=== PATIENT | male | born 1945 | race African-American/Black ===

== ENCOUNTER 2017-10-30 03:11 | Emergency (ER) | payer OTHER ==
[2017-10-30] MEDS ORDERED: METHYLPREDNISOLONE 125 MG INJ ONE (03:52)
[2017-10-30] MEDS ORDERED: ALBUTEROL 2.5 MG/3 ML NEB SOL ONE (03:52)
[2017-10-30] MEDS ORDERED: IPRATROPIUM BROM 0.5MG/2.5ML ONE (03:52)
[2017-10-30] MEDS ORDERED: NA CHLORIDE 0.9% 1,000 ML ONE (03:52)
[2017-10-30 03:55] LABS: Absolute Lymphocytes (CBC) 1.2 K/uL (0.7-4.9); Absolute Monocytes 0.9 K/uL (0.1-1.3); Absolute Neutrophil 4.9 K/uL (1.8-8.0); Basophils % 0.4 % (0-1.3); Hematocrit 40.9 % (39.6-49.0); Lymphocytes % 16.1 % (15.3-44.8); MCH 28.9 pg (27.0-35.0); MCV 89.1 fL (80-100); MPV 8.5 fL (7.6-11.3); Monocytes % 12.7 % (3.3-12.3)
[2017-10-30 03:58] LABS: Protime INR 1.04
[2017-10-30 04:34] LABS: Arterial Blood Carboxyhemoglob 0.9 % (0-1.5); Blood Gas Oxyhemoglobin 94.7 % (94-97)
[2017-10-30 04:43] LABS: Potassium 4.6 mEq/L (3.6-5.0)
[2017-10-30 04:49] LABS: Albumin 4.2 g/dL (3.2-5.5); Bilirubin Direct 0.1 mg/dL (0-0.2); Magnesium 1.9 mg/dL (1.8-2.5); Protein, Total 7.8 g/dL (6.0-8.3)
--- NOTE | 2017-10-30 05:08 | ER ---
Nurse's Notes [facility] Name: Gonzalez Stein Jr Age: 72 yrs Sex: Male : 1945 Arrival Date: 10/30/2017 Time: 03:12 Bed 7 Private MD: Diagnosis: Acute exacerbation COPD Presentation: 10/30 03:12 Presenting complaint: Patient states: SOB since yesterday. Reports hx of emphysema and aa1 has been using his inhaler but no relief. EMS reports RA O2 sat of 86% upon their arrival to residence which increased to 99% after A\T\A tx. NAD noted upon arrival. Pt reports symptoms improved. Transition of care: patient was not received from another setting of care. Onset of symptoms was October 29, 2017. Care prior to arrival: Medication(s) given: Albuterol Neb x 1, Atrovent Neb x 1, Med neb given. 03:12 Method Of Arrival: EMS: [facility] aa1 03:12 Acuity: SHASHANK 3 aa1 Historical: - Allergies: 03:19 No Known Allergies; aa1 - Home Meds: 03:17 Albuterol Inhl [Active]; Hydrochlorothiazide Oral [Active]; pravastatin oral oral aa1 [Active]; aspirin 81 mg Oral TbEC 1 tab once daily [Active]; - PMHx: 03:17 Emphysema; Hypertension; High Cholesterol; aa1 - PSHx: 03:17 None; aa1 - Immunization history:: Flu vaccine is not up to date. - Social history:: Smoking status: Patient/guardian denies using tobacco. Screenin:30 Abuse screen: Denies threats or abuse. Denies injuries from another. Nutritional aa1 screening: No deficits noted. Tuberculosis screening: No symptoms or risk factors identified. Fall Risk None identified. Assessment: 03:30 General: Appears in no apparent distress. comfortable, Behavior is calm, cooperative, aa1 appropriate for age. Pain: Denies pain. Neuro: Level of Consciousness is awake, alert, obeys commands, Oriented to person, place, time, situation, Moves all extremities. Full function Speech is normal. Cardiovascular: Heart tones S1 S2 present Rhythm is regular. Respiratory: Reports shortness of breath at rest Airway is patent Respiratory effort is even, unlabored, Respiratory pattern is regular, symmetrical, Breath sounds with wheezes bilaterally. the patient has mild shortness of breath. GI: No signs and/or symptoms were reported involving the gastrointestinal system. : No signs and/or symptoms were reported regarding the genitourinary system. EENT: No signs and/or symptoms were reported regarding the EENT system. Derm: Skin is intact, is healthy with good turgor, Skin is pink, warm \T\ dry. Musculoskeletal: Circulation, motion, and sensation intact. Capillary refill < 3 seconds. 04:28 Reassessment: Patient appears in no apparent distress at this time. Patient and/or aa1 family updated on plan of care and expected duration. Pain level reassessed. Patient is alert, oriented x 3, equal unlabored respirations, skin warm/dry/pink. Awaiting lab results. 04:45 Reassessment: Patient and/or family updated on plan of care and expected duration. Pain ea level reassessed. Patient is alert, oriented x 3, equal unlabored respirations, skin warm/dry/pink. 05:20 Reassessment: Patient appears in no apparent distress at this time. Patient is alert, aa1 oriented x 3, equal unlabored respirations, skin warm/dry/pink. Discussed d/c \T\ f/u instructions with pt; denies questions or concerns at this time Patient denies pain at this time. Patient states symptoms have improved. Vital Signs: 03:17 BP 139 / 88; Pulse 108; Resp 24; Temp 98.0; Pulse Ox 92% on R/A; Weight 66.68 kg (R); aa1 Height 5 ft. 8 in. (172.72 cm); Pain 0/10; 04:28 BP 134 / 78; Pulse 106; Resp 22; Pulse Ox 98% on 2 lpm NC; Pain 0/10; aa1 05:11 BP 128 / 80; Pulse 114; Resp 22; Pulse Ox 96% on R/A; Pain 0/10; aa1 03:17 Body Mass Index 22.35 (66.68 kg, 172.72 cm) aa1 ED Course: 03:12 Patient arrived in ED. aa1 03:12 Lex Echevarria MD is Attending Physician. pkl 03:14 Triage completed. aa1 03:17 Arm band placed on right wrist. Patient placed in an exam room, on a stretcher. aa1 03:19 EKG done, by sleep lab technician. reviewed by Lex Echevarria MD. oe 03:23 Malissa Kemp, RN is Primary Nurse. ea 03:30 Patient has correct armband on for positive identification. Placed in gown. Bed in low aa1 position. Call light in reach. monitoring specialist on. Pulse ox on. NIBP on. Warm blanket given. 03:31 X-ray completed. Portable x-ray completed in exam room. Patient tolerated procedure la2 well. 03:32 XRAY Chest (1 view) In Process Unspecified. EDMS 03:44 Inserted saline lock: 20 gauge in right antecubital area, using aseptic technique. oe Blood collected. 05:16 IV discontinued, intact, bleeding controlled, No redness/swelling at site. Pressure ea dressing applied. 05:16 No provider procedures requiring assistance completed. ea Administered Medications: 03:41 Drug: NS 0.9% 1000 ml Route: IV; Rate: 100 ml/hr; Site: right antecubital; aa1 05:25 Follow up: Urine output 250 ml; Response: No adverse reaction; IV Status: Completed ea infusion 03:41 Drug: Albuterol - atroVENT (3:1) (2.5 mg - 0.5 mg) 3 ml Route: Nebulizer; aa1 04:30 Follow up: Response: No adverse reaction ea 03:41 Drug: SOLU-Medrol 125 mg Route: IVP; Site: right antecubital; aa1 05:01 Follow up: Response: No adverse reaction; Marked relief of symptoms aa1 05:01 Drug: Xopenex 1.25 mg Route: Inhalation; aa1 05:19 Follow up: Response: No adverse reaction; Marked relief of symptoms aa1 Output: 05:25 Urine: 250ml; Total: 250ml. ea Outcome: 05:08 Discharge ordered by . ester 05:20 Discharged to home ambulatory, with family. aa1 05:20 Condition: good 05:20 Discharge instructions given to patient, Instructed on discharge instructions, follow up and referral plans. medication usage, Demonstrated understanding of instructions, follow-up care, medications, Prescriptions given X 3. 05:26 Patient left the ED. ea Signatures: Dispatcher [employer] EDMS Radha Jewell RN RN aa1 Lex Echevarria MD MD pkl Espinosa, [place] oe Malissa Kemp, RN RN Ebony Alvarez
--- NOTE | 2017-10-30 05:08 | EDPHYS ---
Physician Documentation [facility] Name: Gonzalez Stein Jr Age: 72 yrs Sex: Male : 1945 Arrival Date: 10/30/2017 Time: 03:12 Bed 7 Private MD: ED Physician Lex Echevarria HPI: 10/30 03:21 This 72 yrs old Black Male presents to ER via EMS with complaints of Shortness Of pkl Breath. 03:21 The patient has shortness of breath at rest. Onset: The symptoms/episode began/occurred pkl today. Associated signs and symptoms: Pertinent positives: non-productive cough. The patient has experienced similar episodes in the past, a few times. Historical: - Allergies: 03:19 No Known Allergies; aa1 - Home Meds: 03:17 Albuterol Inhl [Active]; Hydrochlorothiazide Oral [Active]; pravastatin oral oral aa1 [Active]; aspirin 81 mg Oral TbEC 1 tab once daily [Active]; - PMHx: 03:17 Emphysema; Hypertension; High Cholesterol; aa1 - PSHx: 03:17 None; aa1 - Immunization history:: Flu vaccine is not up to date. - Social history:: Smoking status: Patient/guardian denies using tobacco. ROS: 03:21 Eyes: Negative for injury, pain, redness, and discharge, ENT: Negative for injury, pkl pain, and discharge, Neck: Negative for injury, pain, and swelling, Cardiovascular: Negative for chest pain, palpitations, and edema. 03:21 Respiratory: Positive for cough, shortness of breath, wheezing. 03:21 Abdomen/GI: Negative for abdominal pain, nausea, vomiting, and diarrhea. 03:21 Back: Negative for acute changes. 03:21 : Negative for urinary symptoms. 03:21 MS/extremity: Negative for acute changes. 03:21 Skin: Negative for rash. 03:21 Neuro: Negative for altered mental status. Exam: 03:21 Head/Face: Normocephalic, atraumatic. Eyes: Pupils equal round and reactive to light, pkl extra-ocular motions intact. Lids and lashes normal. Conjunctiva and sclera are non-icteric and not injected. Cornea within normal limits. Periorbital areas with no swelling, redness, or edema. ENT: Nares patent. No nasal discharge, no septal abnormalities noted. Tympanic membranes are normal and external auditory canals are clear. Oropharynx with no redness, swelling, or masses, exudates, or evidence of obstruction, uvula midline. Mucous membranes moist. Neck: Trachea midline, no thyromegaly or masses palpated, and no cervical lymphadenopathy. Supple, full range of motion without nuchal rigidity, or vertebral point tenderness. No Meningismus. Chest/axilla: Normal chest wall appearance and motion. Nontender with no deformity. No lesions are appreciated. Cardiovascular: Regular rate and rhythm with a normal S1 and S2. No gallops, murmurs, or rubs. Normal PMI, no JVD. No pulse deficits. 03:21 Respiratory: mild respiratory distress is noted, Respirations: labored breathing, that is mild, Breath sounds: bronchial sounds, that are mild, are scattered, rhonchi, that are mild, are scattered. 03:21 Abdomen/GI: Bowel sounds: normal, Palpation: abdomen is soft and non-tender, in all quadrants. 03:21 Back: Exam negative for acute changes. 03:21 : Exam negative for acute changes. 03:21 Musculoskeletal/extremity: Exam is negative for acute changes. 03:21 Skin: Exam negative for rash. 03:21 Neuro: Orientation: is normal, Mentation: is normal, Cranial nerves: grossly normal, Motor: is normal. Vital Signs: 03:17 BP 139 / 88; Pulse 108; Resp 24; Temp 98.0; Pulse Ox 92% on R/A; Weight 66.68 kg (R); aa1 Height 5 ft. 8 in. (172.72 cm); Pain 0/10; 04:28 BP 134 / 78; Pulse 106; Resp 22; Pulse Ox 98% on 2 lpm NC; Pain 0/10; aa1 05:11 BP 128 / 80; Pulse 114; Resp 22; Pulse Ox 96% on R/A; Pain 0/10; aa1 03:17 Body Mass Index 22.35 (66.68 kg, 172.72 cm) aa1 MDM: 03:12 Patient medically screened. pkl 05:07 Data reviewed: vital signs, nurses notes, lab test result(s), EKG, radiologic studies, pkl plain films. 10/30 03:20 Order name: Basic Metabolic Panel; Complete Time: 04:50 pkl 10/30 03:20 Order name: BNP; Complete Time: 04:50 pkl 10/30 03:20 Order name: CBC with Diff; Complete Time: 04:48 pkl 10/30 03:20 Order name: Ckmb; Complete Time: 04:50 pkl 10/30 03:20 Order name: CPK; Complete Time: 04:50 pkl 10/30 03:20 Order name: LFT's; Complete Time: 04:50 pkl 10/30 03:20 Order name: Magnesium; Complete Time: 04:50 pkl 10/30 03:20 Order name: PT-INR; Complete Time: 04:48 pkl 10/30 03:20 Order name: Ptt, Activated; Complete Time: 04:48 pkl 10/30 03:20 Order name: Troponin (emerg Dept Use Only); Complete Time: 04:48 pkl 10/30 03:20 Order name: XRAY Chest (1 view) pkl 10/30 03:20 Order name: ABG; Complete Time: 04:48 pkl 10/30 03:20 Order name: EKG; Complete Time: 03:21 pkl 10/30 03:20 Order name: Cardiac monitoring; Complete Time: 03:25 pkl 10/30 03:20 Order name: EKG - Nurse/Tech; Complete Time: 03:25 pkl 10/30 03:20 Order name: IV Saline Lock; Complete Time: 03:42 pkl 10/30 03:20 Order name: Labs collected and sent; Complete Time: 03:42 pkl 10/30 03:20 Order name: O2 Per Protocol; Complete Time: 03:25 pkl 10/30 03:20 Order name: O2 Sat Monitoring; Complete Time: 03:25 pkl Administered Medications: 03:41 Drug: NS 0.9% 1000 ml Route: IV; Rate: 100 ml/hr; Site: right antecubital; aa1 05:25 Follow up: Urine output 250 ml; Response: No adverse reaction; IV Status: Completed ea infusion 03:41 Drug: Albuterol - atroVENT (3:1) (2.5 mg - 0.5 mg) 3 ml Route: Nebulizer; aa1 04:30 Follow up: Response: No adverse reaction ea 03:41 Drug: SOLU-Medrol 125 mg Route: IVP; Site: right antecubital; aa1 05:01 Follow up: Response: No adverse reaction; Marked relief of symptoms aa1 05:01 Drug: Xopenex 1.25 mg Route: Inhalation; aa1 05:19 Follow up: Response: No adverse reaction; Marked relief of symptoms aa1 Disposition: 10/30/17 05:08 Discharged to Home. Impression: Acute exacerbation COPD. - Condition is Stable. - Prescriptions for Zithromax Z- Ilia 250 mg Oral Tablet - take 1 tablet by ORAL route as directed for 5 days Day 1 - take two (2) tablets one time. Day 2, 3, 4 , 5 take one (1) tablet once daily.; 6 tablet. Guaifenesin AC 10- 100 mg/5 mL Oral Liquid - take 5 milliliter by ORAL route every 8 hours As needed; 100 milliliter. - Medication Reconciliation Form, Thank You Letter, Antibiotic Education, Prescription Opioid Use form. - Follow up: Private Physician; When: 2 - 3 days; Reason: Re-evaluation by your physician. - Problem is new. - Symptoms have improved. Signatures: Dispatcher [employer] Radha Hudson, RN RN aa1 Lex Echevarria MD MD pkMalissa Guerin RN RN ea
[2017-10-30] MEDS ORDERED: LEVALBUTEROL 1.25 MG/3 ML NEB ONE (05:18)
--- NOTE | 2017-10-30 09:32 | RAD REPORT ---
EXAM DESCRIPTION: Luis Felipe Single View10/30/2017 3:33 am CLINICAL HISTORY: Shortness of breath COMPARISON: July 2017 FINDINGS: The lungs are hyperaerated. The lungs appear clear of acute infiltrate. The heart is normal size IMPRESSION: No acute abnormalities displayed
--- NOTE | 2017-10-31 07:10 | EKG ---
Test Date: 2017-10-30 Test Time: 03:07:59 Drama Professor: CHAI MEASUREMENT RESULTS: Intervals: Rate: 103 OR: 178 QRSD: 68 QT: 324 QTc: 424 [place]: P: 71 OR: 178 QRS: 65 T: 57 INTERPRETIVE STATEMENTS: Sinus tachycardia Otherwise normal ECG Compared to ECG 05/14/2015 05:09:05 No significant changes Electronically Signed On 10-31-17 07:09:53 CDT by Rene Little
== END 2017-10-30 05:26 | disposition home or self-care (01) ==
LOC: ER 03:11
DX: J44.1 Chronic obstructive pulmonary disease with (acute) exacerbation (principal); I10 Essential (primary) hypertension; E78.00 Pure hypercholesterolemia, unspecified; Z79.82 Long term (current) use of aspirin
CPT/HCPCS: 36415; 71045; 80048; 80076; 82550; 82553; 82805; 83735; 83880; 84484; 85025; 85610; 85730; 93005; 94640; 96361; 96374; 99285; J2930; J7030

== ENCOUNTER 2020-10-25 13:54 | Emergency (ER) | payer OTHER ==
--- OUTSIDE RECORDS SUMMARY | 2020-10-25 13:57 | XMS REPORT | Continuity of Care Document ---
:1945 Author Organization [facility] t Address [address] [place] [address] Care Team Providers Name Role Phone Unavailable Unavailable Unavailable Problems Condition Condition Condition Status Onset Resolution Last Treating Co mments Source Name Details Category Date Date Treatment Clinician Date BPH with BPH with Problem [facility] - n/lower n/lower [facility] urinary urinary l tract tract Outpati symptoms symptoms ent Clinics Prostate Prostate Problem Active [facility] Allergies, Adverse Reactions, Alerts This patient has no known allergies or adverse reactions. Medications Ordered Filled Start Stop Current Ordering Indication Dosage Frequency Signature Comments Components Source Medication Medication Date Date Medication? Clinician (SIG) Name Name Albuterol Albuterol Yes Micheline [address] [facility] Sulfate Sulfate [place] needed [facility] Pravastatin Pravastatin Yes Micheline [address] [facility] Sodium Sodium Dk [facility] Lisinopril/ Lisinopril/ Yes Micheline [address] [facility] Hctz Hctz [place] once daily [facility] Procedures This patient has no known procedures. Encounters Start End Encounter Admission Attending Care Care Encounter Source Date/Time Date/Time Type Type Clinicians Facility Department ID 2019-12-25 2019-12-25 Outpatient Onelia Lamar [id number] [facility] 14:58:00 14:58:00 t Specialty/U [facility]a [facility] - Specialty rology [facility] 2019-12-17 2019-12-17 Outpatient Onelia Lamar [id number] [facility] 13:15:00 13:15:00 t Specialty/U [facility]a [facility]es - Specialty [facility]logy [facility] 2019-12-10 2019-12-10 Outpatient Onelia Lamar [id number] [facility] 12:14:00 12:14:00 t Specialty/U Gena kes - Specialty rology [facility] /Urology Clinic l Clinic Outpati ent Clinics 2019-11-27 2019-11-27 Outpatient Onelia Rousseaut [id number] [facility] 15:00:00 15:00:00 t Specialty/U Gena kes - Specialty rology [facility] /Urology Clinic l Clinic Outpati ent Clinics 2019-11-21 2019-11-21 Outpatient Onelia Rousseaut [id number] [facility] 11:32:00 11:32:00 t Specialty/U Gena kes - Specialty rology [facility] /Urology Clinic l Clinic Outpati ent Clinics 2019-11-21 2019-11-21 Outpatient Onelia Rousseaut [id number] [facility] 10:00:00 10:00:00 t Specialty/U Gena kes - Specialty rology [facility] /Urology Clinic l Clinic Outpati ent Clinics 2019-10-19 2019-10-19 Outpatient Onelia Rousseaut [id number] [facility] 10:00:00 10:00:00 t Specialty/U Gena kes - Specialty rology [facility] /Urology Clinic l Clinic Outpati ent Clinics Results This patient has no known results.
[2020-10-25 14:42] LABS: Absolute Lymphocytes (CBC) 0.9 K/uL (0.7-4.9); Basophils % 0.6 % (0-1.3); Hematocrit 33.7 % (39.6-49.0); Lymphocytes % 13.6 % (15.3-44.8); MPV 8.3 fL (7.6-11.3); RBC Red Blood Cell Count 3.87 M/uL (4.33-5.43)
--- NOTE | 2020-10-25 14:51 | RAD REPORT ---
EXAM DESCRIPTION: CT - Head Brain Wo Cont - 10/25/2020 2:36 pm CLINICAL HISTORY: Alteration of awareness/confusion COMPARISON: None TECHNIQUE: Computed axial tomography of the head was obtained. IV contrast was not requested. All CT scans are performed using dose optimization technique as appropriate and may include automated exposure control or mA/KV adjustment according to patient size. FINDINGS: An intracranial bleed is not seen . The ventricles are normal in caliber. No extra-axial fluid collection is noted. A 3.4 centimeter low-density area left parietal lobe probably secondary to an old infarction. Small l ow-density right thalamus. Low-density right caudate has the appearance of an old lacunar infarction. Small low-density left cerebellum probably old infarction Mild to moderate low-density within periventricular, deep and subcortical white matter likely ischemi c changes secondary to small vessel disease Fluid within the sinuses/ mastoids is not seen. IMPRESSION: Small low-density area within the right thalamus likely a lacunar infarction. The age is indeterminate. 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 If clinically indicated further evaluation with MRI be obtained
[2020-10-25 15:05] LABS: BUN Blood Urea Nitrogen 37 mg/dL (7-18); Bicarbonate 26 mmol/L (21-32); Glucose Level 111 mg/dL (74-106); Potassium 3.6 mmol/L (3.5-5.1); Sodium Level 144 mmol/L (136-145); Troponin (Emerg Dept Use Only) < 0.02 ng/mL (0.0-0.045)
[2020-10-25 15:10] LABS: Protime INR 1.04
--- NOTE | 2020-10-25 16:09 | ER ---
Nurse's Notes [facility] Name: Gonzalez Stein Jr Age: 75 yrs Sex: Male : 1945 Arrival Date: 10/25/2020 Time: 13:57 Bed 18 Private MD: Diagnosis: Syncope and collapse;Dehydration Presentation: 10/25 13:57 Chief complaint: EMS states: witnessed syncopal episode by family. Pt diaphoretic and bw hypotensive on scene. Initial BP of 80/60. 128 BG, 300 ml of NS bolus. Pt has newly diagnosed heart arrythmia. Sinus on the monitor. All VSS on arrival to ED. MD at bedside on patient arrival. Coronavirus screen: Client denies travel out of the [place] in the last 14 days. At this time, the client does not indicate any symptoms associated with coronavirus-19. Ebola Screen: No symptoms or risks identified at this time. Initial Sepsis Screen: Does the patient meet any 2 criteria? No. Patient's initial sepsis screen is negative. Does the patient have a suspected source of infection? No. Patient's initial sepsis screen is negative. Risk Assessment: Do you want to hurt yourself or someone else? Patient reports no desire to harm self or others. Onset of symptoms was October 25, 2020. 13:57 Method Of Arrival: EMS: [facility] 13:57 Acuity: SHASHANK 3 bw Triage Assessment: 14:10 General: Appears in no apparent distress. comfortable, Behavior is calm, cooperative, bw appropriate for age. Pain: Denies pain. EENT: No deficits noted. Neuro: No deficits noted. Level of Consciousness is awake, alert, obeys commands, Oriented to person, place, time, situation, Information Security Systems Instructor are equal bilaterally Moves all extremities. Gait is steady, Speech is normal, Facial symmetry appears normal, Pupils are PERRLA, Intact. Cardiovascular: No deficits noted. Respiratory: No deficits noted. GI: No deficits noted. : No deficits noted. Derm: No deficits noted. Musculoskeletal: No deficits noted. Historical: - Allergies: 14:10 No Known Allergies; bw - Home Meds: 14:10 Albuterol Inhl [Active]; aspirin 81 mg Oral TbEC 1 tab once daily [Active]; bw Hydrochlorothiazide Oral [Active]; pravastatin Oral [Active]; - PMHx: 14:10 Emphysema; High Cholesterol; Hypertension; COPD; TIA; bw - Immunization history:: Adult Immunizations up to date. - Social history:: Smoking status: Patient reports the use of cigarette tobacco products. - Family history:: not pertinent. - Hospitalizations: : No recent hospitalization is reported. Screenin:19 Abuse screen: Denies threats or abuse. Nutritional screening: No deficits noted. bw Tuberculosis screening: No symptoms or risk factors identified. Fall Risk None identified. Assessment: 14:19 Reassessment: See triage assessment. General: Appears in no apparent distress. bw comfortable. Pain: Denies pain. Neuro: No deficits noted. Neuro: Denies weakness blurred vision dizziness, difficulty swallowing, numbness headache photophobia. Cardiovascular: No deficits noted. Respiratory: No deficits noted. GI: No deficits noted. : No deficits noted. EENT: No deficits noted. Derm: No deficits noted. Musculoskeletal: No deficits noted. No signs and/or symptoms reported regarding the musculoskeletal system. 15:16 Reassessment: Patient appears in no apparent distress at this time. No changes from previously documented assessment. Patient and/or family updated on plan of care and expected duration. Pain level reassessed. Patient is alert, oriented x 3, equal unlabored respirations, skin warm/dry/pink. 16:34 Reassessment: Patient appears in no apparent distress at this time. Patient and/or bw family updated on plan of care and expected duration. Pain level reassessed. Patient is alert, oriented x 3, equal unlabored respirations, skin warm/dry/pink. Vital Signs: 13:57 BP 101 / 55; Pulse 65; Resp 16; Temp 98.1; Pulse Ox 100% on R/A; Weight 61.69 kg; bw Height 5 ft. 8 in. 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 bw 13:59 Isiah Meyers MD is Attending Physician. rn 14:09 Triage completed. bw 14:10 Arm band placed on right wrist. bw 14:17 Allie Harden, RN is Primary Nurse. bw 14:19 Patient has correct armband on for positive identification. Call light in reach. Side bw rails up X 1. pricer bagger on. Pulse ox on. NIBP on. Warm blanket given. 14:19 No provider procedures requiring assistance completed. Maintain EMS IV. Dressing bw intact. Good blood return noted. Site clean \T\ dry. Gauge \T\ site: 20g left hand . 14:33 Basic Metabolic Panel Sent. bw 14:33 CBC with Diff Sent. bw 14:34 Initial lab(s) drawn, by me, sent to lab. Patient maintains SpO2 saturation greater jp3 than 95% on room air. 14:36 CT Head Brain wo Cont In Process Unspecified. EDMS 15:04 EKG done, by ED staff, reviewed by Isiah Meyers MD. jp3 16:34 IV discontinued. bw Administered Medications: 14:17 Drug: NS 0.9% 500 ml Route: IV; Rate: bolus; Site: left hand; bw 15:17 Follow up: Response: No adverse reaction; IV Status: Completed infusion bw Outcome: 16:09 Discharge ordered by MD. rn 16:34 Discharged to home ambulatory. bw 16:34 Condition: stable 16:34 Discharge instructions given to patient, Instructed on discharge instructions. 16:36 Patient left the ED. NIH Stroke Scale - NIH Stroke Score Date: 10/25/2020 Time: 15:04 Total Score = 0 1a. Level of Consciousness (LOC) - 0(Alert) 1b. Level of Consciousness (LOC) (Year \T\ Age) - 0(Both) 1c. LOC Commands (Open \T\ Closes Eyes/Test Engine Operator) - 0(Both) 2. Best Gaze (Lateral Gaze Paresis) - 0(Normal) 3. Visual Field Loss - 0(No visual loss) 4. Facial Palsy - 0(Normal) 5a. Left Arm: Motor (10-second hold) - 0(No drift) 5b. Right Arm: Motor (10-second hold) - 0(No drift) 6a. Left Leg: Motor (5-second hold - always test supine) - 0(No drift) 6b. Right Leg: Motor (5-second hold - always test supine) - 0(No drift) 7. Limb Ataxia (finger/nose \T\ heel/ladd - test with eyes open) - 0(Absent) 8. Sensory Loss (pinprick arms/legs/face) - 0(Normal) 9. Best Language: Aphasia (description/naming/reading) - 0(No aphasia) 10. Dysarthria (speech clarity - read or repeat words) - 0(Normal) 11. Extinction and Inattention (visual/tactile/auditory/spatial/personal) - 0(No abnormality) Initials: rn Signatures: Dispatcher [employer] Isiah Boykin MD MD rn Pisarski, Jacob jp3 Allie Harden RN RN bw
--- NOTE | 2020-10-25 16:10 | EDPHYS ---
Physician Documentation [facility] Name: Gonzalez Stein Jr Age: 75 yrs Sex: Male : 1945 Arrival Date: 10/25/2020 Time: 13:57 Bed 18 Private MD: ED Physician Isiah Meyers HPI: 10/25 14:03 This 75 yrs old Black Male presents to ER via Unassigned with complaints of syncope. rn 14:03 The patient has experienced syncope. Onset: The symptoms/episode began/occurred just rn prior to arrival. Duration: This was a single episode. Associated injury: The patient did not suffer any apparent associated injury. Associated signs and symptoms: Pertinent negatives: abdominal pain, ataxia, chest pain, combativeness, confusion, diaphoresis, diarrhea, dizziness, headache, lightheadedness, numbness, palpitations, seizure, shortness of breath, tingling, vertigo, vomiting, weakness. Current symptoms: Currently, the patient is not experiencing any symptoms. The patient has experienced a previous episode. The patient has not recently seen a physician. Reports sitting in truck, engine off, eating ice cream, thinks passed out. Improved after friend turned engine on and turned on AC. Denies preceding symptoms, no chest pain before or after, has been eating and drinking ok, no abd pain, no vomiting/diarrhea. . Historical: - Allergies: 14:10 No Known Allergies; bw - Home Meds: 14:10 Albuterol Inhl [Active]; aspirin 81 mg Oral TbEC 1 tab once daily [Active]; bw Hydrochlorothiazide Oral [Active]; pravastatin Oral [Active]; - PMHx: 14:10 Emphysema; High Cholesterol; Hypertension; COPD; TIA; bw - Immunization history:: Adult Immunizations up to date. - Social history:: Smoking status: Patient reports the use of cigarette tobacco products. - Family history:: not pertinent. - Hospitalizations: : No recent hospitalization is reported. ROS: 14:03 Constitutional: Negative for fever, chills, and weight loss, Eyes: Negative for injury, rn pain, redness, and discharge, Neck: Negative for injury, pain, and swelling, Cardiovascular: Negative for chest pain, palpitations, and edema, Respiratory: Negative for shortness of breath, cough, wheezing, and pleuritic chest pain, Abdomen/GI: Negative for abdominal pain, nausea, vomiting, diarrhea, and constipation, Back: Negative for injury and pain, MS/Extremity: Negative for injury and deformity, Skin: Negative for injury, rash, and discoloration, Neuro: Negative for headache, weakness, numbness, tingling, and seizure. 14:03 All other systems are negative. Exam: 14:03 Constitutional: This is a well developed, well nourished patient who is awake, alert, rn and in no acute distress. Head/Face: Normocephalic, atraumatic. Eyes: Pupils equal round and reactive to light, extra-ocular motions intact. Lids and lashes normal. Conjunctiva and sclera are non-icteric and not injected. Cornea within normal limits. Periorbital areas with no swelling, redness, or edema. Cardiovascular: Regular rate and rhythm. No pulse deficits. Respiratory: No increased work of breathing, no retractions or nasal flaring. Abdomen/GI: soft, non-tender Skin: Warm, dry MS/ Extremity: Pulses equal, no cyanosis. Neuro: Awake and alert, GCS 15, oriented to person, place, time, and situation. Cranial nerves II-XII grossly intact. Motor strength 5/5 in all extremities. Sensory grossly intact. Cerebellar exam normal. Vital Signs: 13:57 BP 101 / 55; Pulse 65; Resp 16; Temp 98.1; Pulse Ox 100% on R/A; Weight 61.69 kg; bw Height 5 ft. 8 in. (172.72 cm); Pain 0/10; 15:04 BP 105 / 62 RA (auto/reg); Pulse 71; Resp 16 S; Pulse Ox 100% on R/A; jp3 16:34 BP 112 / 64; Pulse 74; Resp 16; Pulse Ox 100% on R/A; bw 13:57 Body Mass Index 20.68 (61.69 kg, 172.72 cm) bw NIH Stroke Scale Scores: 15:04 NIHSS Score: 0 rn MDM: 13:59 Patient medically screened. 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 . 16:06 Differential Diagnosis: cardiac arrhythmia, idiopathic syncope, transient ischemic rn attack, vasovagal episode. Differential Diagnosis: dehydration, heat exhaustion. Data reviewed: vital signs, nurses notes. Counseling: I had a detailed discussion with the patient and/or guardian regarding: the historical points, exam findings, and any diagnostic results supporting the discharge/admit diagnosis, lab results, radiology results, the need for further work-up and treatment in the hospital. Response to treatment: the patient's symptoms have resolved after treatment, the patient's condition has returned to base line, the patient is now symptom free, patient is well hydrated. and as a result, I will discharge patient. Special discussion: I discussed with the patient/guardian in detail that at this point there is no indication for admission to the hospital. It is understood, however, that if the symptoms persist or worsen the patient needs to return immediately for re-evaluation. ED course: NO acute findings in blood or urine. Repeat neuro exam normal. I do not believe the thalamus finding is acute, is age indeterminate, patient wants to go home, has cardiology f/u in 3 days, will dc home, spoke with son and went over all results. Return precautions given and understood. . 16:09 ED course: NO malignant Arrythmias here on monitor or ECG. . rn 10/25 13:59 Order name: Basic Metabolic Panel 10/25 13:59 Order name: CBC with Diff rn 10/25 13:59 Order name: Magnesium; Complete Time: 15:12 10/25 13:59 Order name: Protime (+inr); Complete Time: 15:39 10/25 13:59 Order name: Ptt, Activated; Complete Time: 15:39 10/25 13:59 Order name: Troponin (emerg Dept Use Only); Complete Time: 15:12 rn 10/25 13:59 Order name: CT Head Brain wo Cont; Complete Time: 15:03 10/25 13:59 Order name: EKG; Complete Time: 14:08 rn 10/25 13:59 Order name: Cardiac monitoring; Complete Time: 14:18 rn 10/25 14:07 Order name: Basic Metabolic Panel; Complete Time: 15:12 EDNY 10/25 14:07 Order name: CBC with Automated Diff; Complete Time: 15:39 EDNY 10/25 16:04 Order name: Urine Dipstick--Ancillary (enter results) 10/25 13:59 Order name: IV Saline Lock; Complete Time: 14:18 rn 10/25 13:59 Order name: Labs collected and sent; Complete Time: 14:18 rn 10/25 13:59 Order name: O2 Per Protocol; Complete Time: 14:18 rn 10/25 13:59 Order name: O2 Sat Monitoring; Complete Time: 14:18 rn Administered Medications: 14:17 Drug: NS 0.9% 500 ml Route: IV; Rate: bolus; Site: left hand; bw 15:17 Follow up: Response: No adverse reaction; IV Status: Completed infusion bw Disposition: 10/25/20 16:09 Discharged to Home. Impression: Syncope and collapse, Dehydration. - Condition is Stable. - Discharge Instructions: Dehydration, Adult, Syncope. - Medication Reconciliation Form, Thank You Letter, Antibiotic Education, Prescription Opioid Use form. - Follow up: Private Physician; When: As needed; Reason: Recheck today's complaints, Re-evaluation by your physician. - Problem is new. - Symptoms have improved. NIH Stroke Scale - NIH Stroke Score Date: 10/25/2020 Time: 15:04 Total Score = 0 1a. Level of Consciousness (LOC) - 0(Alert) 1b. Level of Consciousness (LOC) (Year \T\ Age) - 0(Both) 1c. LOC Commands (Open \T\ Closes Eyes/Railroad Car Painter) - 0(Both) 2. Best Gaze (Lateral Gaze Paresis) - 0(Normal) 3. Visual Field Loss - 0(No visual loss) 4. Facial Palsy - 0(Normal) 5a. Left Arm: Motor (10-second hold) - 0(No drift) 5b. Right Arm: Motor (10-second hold) - 0(No drift) 6a. Left Leg: Motor (5-second hold - always test supine) - 0(No drift) 6b. Right Leg: Motor (5-second hold - always test supine) - 0(No drift) 7. Limb Ataxia (finger/nose \T\ heel/ladd - test with eyes open) - 0(Absent) 8. Sensory Loss (pinprick arms/legs/face) - 0(Normal) 9. Best Language: Aphasia (description/naming/reading) - 0(No aphasia) 10. Dysarthria (speech clarity - read or repeat words) - 0(Normal) 11. Extinction and Inattention (visual/tactile/auditory/spatial/personal) - 0(No abnormality) Initials: rn Signatures: Dispatcher [employer] EDIisah Weeks MD MD rn Webb, MUNIR Kelley RN bw Corrections: (The following items were deleted from the chart) 16:36 16:09 10/25/2020 16:09 Discharged to Home. Impression: Syncope and collapse; bw Dehydration. Condition is Stable. Forms are Medication Reconciliation Form, Thank You Letter, Antibiotic Education, Prescription Opioid Use. Follow up: Private Physician; When: As needed; Reason: Recheck today's complaints, Re-evaluation by your physician. Problem is new. Symptoms have improved. rn
[2020-10-25 18:15] LABS: Urine Blood NEGATIVE (Negative); Urine Glucose NEGATIVE (Negative); Urine Protein NEGATIVE (NEG)
[2020-10-26 01:11] VITALS: TEMP 98.1; O2SAT 100
[2020-10-26 01:14] VITALS: BP 112/64
--- NOTE | 2020-10-26 09:50 | EKG ---
Test Date: 2020-10-25 Test Time: 14:57:44 Gamma Operator: CELIA MEASUREMENT RESULTS: Intervals: Rate: 80 IA: 204 QRSD: 72 QT: 382 QTc: 440 [place]: P: 79 IA: 204 QRS: 81 T: 54 INTERPRETIVE STATEMENTS: Sinus rhythm with marked sinus arrhythmia Nonspecific T wave abnormality Abnormal ECG Compared to ECG 10/30/2017 03:07:59 T-wave abnormality now present Sinus tachycardia no longer present Electronically Signed On 10-26-20 09:47:50 CDT by Damon Yi
== END 2020-10-25 16:36 | disposition home or self-care (01) ==
LOC: ER 13:54
DX: E86.0 Dehydration (principal); I10 Essential (primary) hypertension; E78.00 Pure hypercholesterolemia, unspecified; J44.9 Chronic obstructive pulmonary disease, unspecified; F17.210 Nicotine dependence, cigarettes, uncomplicated; Z79.82 Long term (current) use of aspirin
CPT/HCPCS: 36415; 70450; 80048; 81003; 83735; 84484; 85025; 85610; 85730; 93005; 96360; 99285

== ENCOUNTER 2021-09-05 19:36 | Emergency (ER) | payer OTHER ==
--- OUTSIDE RECORDS SUMMARY | 2021-09-05 19:38 | XMS REPORT | Continuity of Care Document ---
:1945 Author Organization [facility] t Address [address] [place] [address] Care Team Providers Name Role Phone Aaliyah Estevez Attending Clinician Unavailable Problems Condition Condition Condition Status Onset Resolution Last Treating Co mments Source Name Details Category Date Date Treatment Clinician Date BPH with BPH with Problem [facility] - n/lower n/lower [facility] urinary urinary l tract tract Outpat[facility] symptoms symptoms ent Clinics Prostate Prostate Problem Active [facility] Allergies, Adverse Reactions, Alerts This patient has no known allergies or adverse reactions. Medications Ordered Filled Start Stop Current Ordering Indication Dosage Frequency Signature Comments Components Source Medication Medication Date Date Medication? Clinician (SIG) Name Name Albuterol Albuterol Yes Micheline [address] [facility] Sulfate Sulfate Dk needed [facility] Pravastatin Pravastatin Yes Micheline [address] [facility] Sodium Sodium [place] [facility] Lisinopril/ Lisinopril/ Yes Micheline [address] [facility] Hctz Hctz Dk once daily [facility] Procedures This patient has no known procedures. Encounters Start End Encounter Admission Attending Care Care Encounter Source Date/Time Date/Time Type Type Clinicians Facility Department ID 2021-08-26 [facility] [id number] [facility] 11:14:54 [place] [id number] [facility] 2019-12-25 2019-12-25 Outpatient Onelia Lamar [id number] [facility] 14:58:00 14:58:00 t Specialty/U [facility] - [facility] 2019-12-17 2019-12-17 Outpatient Onelia Rousseaut [id number] [facility] 13:15:00 13:15:00 t Specialty/U [facility]a [facility] - Specialty [facility] /Urology Clinic l Clinic Outpati ent Clinics 2019-12-10 2019-12-10 [place] [id number] [facility] 12:14:00 12:14:00 t Specialty/U [facility]a [facility]es - Specialty [facility] /Urology Clinic l Clinic Outpati ent Clinics 2019-11-27 2019-11-27 [place] [place] [id number] [facility] 15:00:00 15:00:00 t Specialty/U [facility]a kes - Specialty [facility]y [facility]Urology Clinic l Clinic Outpati ent Clinics 2019-11-21 2019-11-21 Out[place] [place] [id number] [facility] 11:32:00 11:32:00 t Specialty/U Gena kes - Specialty [facility]y [facility] /Urology Clinic l Clinic Outpati ent Clinics 2019-11-21 2019-11-21 [place] [id number] [facility] 10:00:00 10:00:00 t Specialty/U [facility]a kes - Specialty [facility]y [facility]Urology Clinic l Clinic Outpati ent Clinics 2019-10-19 2019-10-19 [place] [facility] [id number] [facility] 10:00:00 10:00:00 t Specialty/U Gena kes - Specialty [facility]y [facility]Urology Clinic l Clinic Outpati ent Clinics Results This patient has no known results.
[2021-09-05 20:13] LABS: Urine Blood Negative (Negative); Urine Glucose Negative (Negative); Urine Protein Negative (Negative); Urine Specific Gravity 1.015 (1.005-1.030); Urine pH 5.5 (5.0-7.0)
[2021-09-05] MEDS ORDERED: ONDANSETRON 4 MG/2 ML VIAL ONE (20:30)
[2021-09-05] MEDS ORDERED: MORPHINE 2 MG/ML SYR ONE (20:30)
[2021-09-05] MEDS ORDERED: NA CHLORIDE 0.9% 500 ML ONE (20:30)
[2021-09-05 20:35] LABS: Absolute Lymphocytes (CBC) 1.4 K/uL (0.7-4.9); Hematocrit 35.5 % (39.6-49.0); Lymphocytes % 20.7 % (15.3-44.8); MPV 7.5 fL (7.6-11.3); RBC Red Blood Cell Count 4.12 M/uL (4.33-5.43)
[2021-09-05 20:49] LABS: ALT/SGPT 22 U/L (12-78); AST/SGOT 17 U/L (15-37); Albumin 3.5 g/dL (3.4-5.0); Alkaline Phosphatase 74 U/L (45-117); BUN Blood Urea Nitrogen 25 mg/dL (7-18); Bicarbonate 23 mmol/L (21-32); Bilirubin Direct < 0.1 mg/dL (0-0.2); Bilirubin Total 0.3 mg/dL (0.2-1.0); Glucose Level 82 mg/dL (74-106); Lipase 88 U/L (73-393); Potassium 3.6 mmol/L (3.5-5.1); Protein, Total 7.9 g/dL (6.4-8.2); Sodium Level 136 mmol/L (136-145)
--- NOTE | 2021-09-05 21:08 | RAD REPORT ---
EXAM DESCRIPTION: CT - Stone Protocol - 09/05/2021 8:49 pm CLINICAL HISTORY: Abdominal pain. Flank pain COMPARISON: 2019 MRI TECHNIQUE: Computed axial tomography of the abdomen pelvis was obtained without oral or IV contrast. Lack of IV and oral contrast limits evaluation of solid organs, bowel, and vessels. Coronal reformat shelby images were obtained and reviewed. All CT scans are performed using dose optimization technique as appropriate and may include automated exposure control or mA/KV adjustment according to patient size. FINDINGS: A renal calculus is not seen. An ureteral calculus is not noted. A bladder calculus is not present. No hydronephrosis. 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 Mild interstitial right middle lobe opacities presum ably chronic. The liver, spleen, pancreas and adrenals appear grossly normal. Small left renal cyst There is no evidence of diverticulitis. The appendix appears normal Moderate right and small left inguinal hernias contain fat. Post treatment changes periprostatic region. IMPRESSION: Negative for a genitourinary calculus 18 millimeter left lower lobe opacity probably atelectasis. As a mass can also have this appearance i t is recommended that the patient have a followup CT chest in 3 months for re-evaluation
--- NOTE | 2021-09-05 21:46 | EDPHYS ---
Physician Documentation [facility] Name: Gonzalez Stein Jr Age: 76 yrs Sex: Male : 1945 Arrival Date: 09/05/2021 Time: 19:42 Bed 17 Private MD: ED Physician Romeo Colunga HPI: 09/05 20:14 This 76 yrs old Black Male presents to ER via Ambulatory with complaints of Flank Pain, mh7 Low Back Pain. 20:14 The patient complains of pain in the left flank and right flank. The pain does not mh7 radiate. Onset: The symptoms/episode began/occurred 3 day(s) ago. Modifying factors: The symptoms are alleviated by remaining still, the symptoms are aggravated by movement, palpation/percussion. Associated signs and symptoms: Pertinent negatives: diarrhea, dizziness, dysuria, fever, urinary frequency, headache, hematuria, nausea, pain radiating to the lower extremities, vomiting. Severity of pain: At its worst the pain was moderate 2 day(s) ago, in the emergency department the pain has improved moderately. Historical: - Allergies: 19:50 No Known Allergies; tw5 - Home Meds: 19:50 lisinopril-hydrochlorothiazide 20-25 mg oral tab 1 tab once daily [Active]; aspirin 81 tw5 mg Oral TbEC 1 tab once daily [Active]; pravastatin 20 mg oral tab 1 tab once daily [Active]; albuterol sulfate 0.63 mg/3 mL inhalation nebu [Active]; - PMHx: 19:50 COPD; Emphysema; High Cholesterol; Hypertension; TIA; tw5 - PSHx: 19:50 hernia repair- 1964; tw5 - Immunization history:: Flu vaccine is not up to date. - Social history:: Smoking status: Patient denies any tobacco usage or history of. ROS: 20:14 Constitutional: Negative for fever, chills, and weight loss, Eyes: Negative for injury, mh7 pain, redness, and discharge, ENT: Negative for injury, pain, and discharge, Neck: Negative for injury, pain, and swelling, Cardiovascular: Negative for chest pain, palpitations, and edema, Respiratory: Negative for shortness of breath, cough, wheezing, and pleuritic chest pain, Abdomen/GI: Negative for abdominal pain, nausea, vomiting, diarrhea, and constipation, : Negative for injury, bleeding, discharge, and swelling, MS/Extremity: Negative for injury and deformity, Skin: Negative for injury, rash, and discoloration, Neuro: Negative for headache, weakness, numbness, tingling, and seizure, Psych: Negative for depression, anxiety, suicide ideation, homicidal ideation, and hallucinations, Allergy/Immunology: Negative for hives, rash, and allergies, Endocrine: Negative for neck swelling, polydipsia, polyuria, polyphagia, and marked weight changes, Hematologic/Lymphatic: Negative for swollen nodes, abnormal bleeding, and unusual bruising. Exam: 20:14 Constitutional: This is a well developed, well nourished patient who is awake, alert, mh7 and in no acute distress. Head/Face: Normocephalic, atraumatic. Eyes: Pupils equal round and reactive to light, extra-ocular motions intact. Lids and lashes normal. Conjunctiva and sclera are non-icteric and not injected. Cornea within normal limits. Periorbital areas with no swelling, redness, or edema. Neck: Trachea midline, no thyromegaly or masses palpated, and no cervical lymphadenopathy. Supple, full range of motion without nuchal rigidity, or vertebral point tenderness. No Meningismus. Chest/axilla: Normal chest wall appearance and motion. Nontender with no deformity. No lesions are appreciated. Cardiovascular: Regular rate and rhythm with a normal S1 and S2. No gallops, murmurs, or rubs. Normal PMI, no JVD. No pulse deficits. Respiratory: Lungs have equal breath sounds bilaterally, clear to auscultation and percussion. No rales, rhonchi or wheezes noted. No increased work of breathing, no retractions or nasal flaring. Abdomen/GI: Soft, non-tender, with normal bowel sounds. No distension or tympany. No guarding or rebound. No evidence of tenderness throughout. Skin: Warm, dry with normal turgor. Normal color with no rashes, no lesions, and no evidence of cellulitis. MS/ Extremity: Pulses equal, no cyanosis. Neurovascular intact. Full, normal range of motion. Neuro: Awake and alert, GCS 15, oriented to person, place, time, and situation. Cranial nerves II-XII grossly intact. Motor strength 5/5 in all extremities. Sensory grossly intact. Cerebellar exam normal. Normal gait. Psych: Awake, alert, with orientation to person, place and time. Behavior, mood, and affect are within normal limits. 20:14 Back: pain, that is mild, of the right flank, ROM is normal, normal spinal alignment mh7 noted, CVA tenderness, that is mild, is noted on the right, vertebral tenderness, is not appreciated, muscle spasm, is not present, Straight leg raises: of both lower extremities does not illicit pain. 20:14 : CVA tenderness, on the right, Bladder: is normal, Rectal exam: is refused by patient or guardian. Vital Signs: 19:47 BP 153 / 70; Pulse 78; Resp 18; Temp 98.7(O); Pulse Ox 100% on R/A; Weight 52.16 kg; tw5 Height 5 ft. 8 in. (172.72 cm); Pain 5/10; 20:08 BP 160 / 82; Pulse 72; Resp 18; Temp 98.2; Pulse Ox 100% on R/A; Pain 3/10; benedict 21:37 BP 149 / 76; Pulse 73; Resp 20; Temp 98.5; Pulse Ox 100% on R/A; Pain 0/10; benedict 19:47 Body Mass Index 17.49 (52.16 kg, 172.72 cm) tw5 MDM: 21:37 Differential diagnosis: nephrolithiasis, pyelonephritis, UTI, Nonspecific flank pain, mh7 back pain. Data reviewed: vital signs, nurses notes, old medical records, lab test result(s), amylase and lipase, CBC, electrolytes, urinalysis, radiologic studies, CT scan. Data interpreted: Pulse oximetry: on room air is 100 %. Interpretation: normal. Counseling: I had a detailed discussion with the patient and/or guardian regarding: the historical points, exam findings, and any diagnostic results supporting the discharge/admit diagnosis, the presence of at least one elevated blood pressure reading (>120/80) during this emergency department visit, lab results, radiology results, the need for outpatient follow up, to return to the emergency department if symptoms worsen or persist or if there are any questions or concerns that arise at home. 21:41 ED course: Well-appearing, no acute distress, vital signs stable, no focal neurological mh7 deficits. Patient reports no pain at this time and only has intermittently with movement. He refused offer for pain medication in the ED. Discussed all test results and findings with the patient including CT finding of 18 mm posterior left lower lobe opacity probably atelectasis. Interstitial right lower lobe opacities presumably chronic. Also discussed recommendation by radiologist of CT chest in 3 months for reevaluation. Patient declined offer further diagnostic tests or treatment today. He reports that he is ready for discharge at this time. He will follow-up with his primary doctor but instructed to return to ED if worsening of symptoms or other urgent concerns.. 21:45 Patient medically screened. [facility] 21:48 Response to treatment: the patient's symptoms have resolved after treatment, the [facility] patient's blood pressure is in an acceptable range, mental status has returned to baseline, the patient no longer shows bradycardia, the patient is not short of breath, the patient is not tachycardic, the patient's pain is gone, the patient's temperature has normalized, the patient is now symptom free, patient is well hydrated. Refusal of service: The patient/guardian displays adequate decision making capability and despite a detailed discussion of alternatives, benefits, risks, and consequences refuses: Medications. 09/05 20:13 Order name: Urine Dipstick-Ancillary; Complete Time: 20:41 [facility] 09/05 20:13 Order name: Basic Metabolic Panel; Complete Time: 20:53 [facility] 09/05 20:13 Order name: CBC with Diff; Complete Time: 20:41 [facility] 09/05 20:13 Order name: Hepatic Function; Complete Time: 20:53 [facility] 09/05 20:13 Order name: Lipase; Complete Time: 20:53 [facility] 09/05 20:13 Order name: CT Stone Protocol; Complete Time: 21:15 [facility] 09/05 20:13 Order name: IV Saline Lock; Complete Time: 20:22 [facility] 09/05 20:13 Order name: Labs collected and sent; Complete Time: 20:22 [facility] 09/05 20:13 Order name: Urine Dipstick-Ancillary (obtain specimen); Complete Time: 20:22 [facility] Administered Medications: 20:10 Drug: NS 0.9% 500 ml Route: IV; Rate: bolus; Site: right forearm; benedict 21:17 Follow up: Response: No adverse reaction; IV Status: Completed infusion benedict 20:10 Drug: Zofran (Ondansetron) 4 mg Route: IVP; Site: left wrist; benedict 21:17 Follow up: Response: No adverse reaction benedict 20:48 Not Given (Patient Refused): morphine 2 mg IVP once; RASS on ADMIN: Combtv4, Very benedict Agttd3, Agttd2, Rstlss1, AlertClm0, Drwsy-1, Lt Sdtn-2, Mod Sdtn-3, Dp Sdtn-4, UnArsble-5 22:01 Not Given (Patient Refused): Tylenol 650 mg PO once benedict Disposition Summary: 09/05/21 21:45 Discharge Ordered Location: Home [facility] Problem: new [facility] Symptoms: have improved [facility] Condition: Stable [facility] Diagnosis - Flank pain [facility] Followup: [facility] - With: Private Physician - When: 1 - 2 days - Reason: Worsening of condition, Recheck today's complaints, Continuance of care, Re-evaluation by your physician Discharge Instructions: - Discharge Summary Sheet [facility] - Flank Pain, Adult, [id number] [facility] Forms: - Medication Reconciliation Form [facility] - Thank You Letter [facility] - Antibiotic Education [facility] - Prescription Opioid Use [facility] Signatures: Dispatcher [employer] Romeo Duff MD MD [facility] Nicolette Mendes 5 Nicole Bynum RN RN benedict
--- NOTE | 2021-09-05 21:46 | ER ---
Nurse's Notes [facility] Name: Gonzalez Stein Jr Age: 76 yrs Sex: Male : 1945 Arrival Date: 09/05/2021 Time: 19:42 Bed 17 Private MD: Diagnosis: Flank pain Presentation: 09/05 19:47 Chief complaint: Patient states: "I am having pain in my sides, it started about three tw5 days ago. Like right were my ribs are on my sides.". Coronavirus screen: Vaccine status: Patient reports being unvaccinated. Ebola Screen: Patient negative for fever greater than or equal to 101.5 degrees Fahrenheit, and additional compatible Ebola Virus Disease symptoms Patient denies exposure to infectious person. Patient denies travel to an Ebola-affected area in the 21 days before illness onset. Initial Sepsis Screen: Does the patient meet any 2 criteria? No. Patient's initial sepsis screen is negative. Does the patient have a suspected source of infection? No. Patient's initial sepsis screen is negative. Risk Assessment: Do you want to hurt yourself or someone else? Patient reports no desire to harm self or others. Onset of symptoms was September 02, 2021. 19:47 Method Of Arrival: Ambulatory tw5 19:47 Acuity: SHASHANK 3 tw5 Triage Assessment: 19:50 General: Appears in no apparent distress. Behavior is calm, cooperative, appropriate tw5 for age. Pain: Pain currently is 5 out of 10 on a pain scale. Historical: - Allergies: 19:50 No Known Allergies; tw5 - Home Meds: 19:50 lisinopril-hydrochlorothiazide 20-25 mg oral tab 1 tab once daily [Active]; aspirin 81 tw5 mg Oral TbEC 1 tab once daily [Active]; pravastatin 20 mg oral tab 1 tab once daily [Active]; albuterol sulfate 0.63 mg/3 mL inhalation nebu [Active]; - PMHx: 19:50 COPD; Emphysema; High Cholesterol; Hypertension; TIA; tw5 - PSHx: 19:50 hernia repair- 1965; tw5 - Immunization history:: Flu vaccine is not up to date. - Social history:: Smoking status: Patient denies any tobacco usage or history of. Screenin:15 Abuse screen: Denies threats or abuse. Denies injuries from another. Nutritional benedict screening: No deficits noted. Tuberculosis screening: No symptoms or risk factors identified. Fall Risk None identified. Assessment: 20:10 Reassessment: Patient appears in no apparent distress at this time. No changes from benedict previously documented assessment. Pain: Complains of pain in back Pain currently is 3 out of 10 on a pain scale. Neuro: No deficits noted. Cardiovascular: No deficits noted. Respiratory: No deficits noted. GI: No deficits noted. : No deficits noted. Musculoskeletal: No deficits noted. 20:47 General: Pt taken to CT via w/c. . benedict 21:38 General: The MD came to bedside and told the pt of the unremarkable findings. The pt is benedict going to call his grandson to pick him up. . Vital Signs: 19:47 BP 153 / 70; Pulse 78; Resp 18; Temp 98.7(O); Pulse Ox 100% on R/A; Weight 52.16 kg; tw5 Height 5 ft. 8 in. (172.72 cm); Pain 5/10; 20:08 BP 160 / 82; Pulse 72; Resp 18; Temp 98.2; Pulse Ox 100% on R/A; Pain 3/10; benedict 21:37 BP 149 / 76; Pulse 73; Resp 20; Temp 98.5; Pulse Ox 100% on R/A; Pain 0/10; benedict 19:47 Body Mass Index 17.49 (52.16 kg, 172.72 cm) tw5 ED Course: 19:42 Patient arrived in ED. ja2 19:50 Triage completed. tw5 19:50 Arm band placed on right wrist. tw5 19:54 Romeo Colunga MD is Attending Physician. 7 20:02 Nicole Bynum, RN is Primary Nurse. benedict 20:22 Basic Metabolic Panel Sent. benedict 20:22 CBC with Diff Sent. benedict 20:22 Hepatic Function Sent. benedict 20:22 Lipase Sent. benedict 20:48 CT Stone Protocol In Process Unspecified. EDMS 21:15 No provider procedures requiring assistance completed. Inserted saline lock: 20 gauge benedict in right forearm, using aseptic technique. 21:16 Patient has correct armband on for positive identification. Placed in gown. Bed in low benedict position. Call light in reach. Side rails up X 1. Adult w/ patient. Lights dimmed. Warm blanket given. 21:59 intact, bleeding controlled, No redness/swelling at site. Pressure dressing applied. benedict Administered Medications: 20:10 Drug: NS 0.9% 500 ml Route: IV; Rate: bolus; Site: right forearm; benedict 21:17 Follow up: Response: No adverse reaction; IV Status: Completed infusion benedict 20:10 Drug: Zofran (Ondansetron) 4 mg Route: IVP; Site: left wrist; benedict 21:17 Follow up: Response: No adverse reaction benedict 20:48 Not Given (Patient Refused): morphine 2 mg IVP once; RASS on ADMIN: Combtv4, Very benedict Agttd3, Agttd2, Rstlss1, AlertClm0, Drwsy-1, Lt Sdtn-2, Mod Sdtn-3, Dp Sdtn-4, UnArsble-5 22:01 Not Given (Patient Refused): Tylenol 650 mg PO once benedict Outcome: 21:16 Condition: stable benedict 21:45 Discharge ordered by MD. olivares 21:58 Discharged to home ambulatory, The pt ambulated to the waiting area and is waiting on benedict his grandson to pick him up. 21:58 Discharge instructions given to patient, Instructed on discharge instructions, follow up and referral plans. a printout of the CT scan and labs was given to the pt to take to his PCP Demonstrated understanding of instructions, follow-up care. 22:00 Patient left the ED. benedict Signatures: Dispatcher [employer] Romeo Duff MD MD 7 Meaghan Rodney Tiffany 5 Nicole Bynum RN RN benedict
[2021-09-05 22:47] VITALS: O2SAT 100
[2021-09-05 22:50] VITALS: BP 149/76; TEMP 98.5
== END 2021-09-05 22:00 | disposition home or self-care (01) ==
LOC: ER 19:36
DX: R10.9 Unspecified abdominal pain (principal); I10 Essential (primary) hypertension; E78.00 Pure hypercholesterolemia, unspecified; J44.9 Chronic obstructive pulmonary disease, unspecified; Z79.82 Long term (current) use of aspirin
CPT/HCPCS: 96361; 85025; 80048; 36415; 80076; 81003; 83690; 76377; 74176; 96374; 99284; J7040; J2405; J2270

== ENCOUNTER 2022-08-17 13:18 | Inpatient (IN) | payer OTHER ==
--- OUTSIDE RECORDS SUMMARY | 2022-08-17 13:21 | XMS REPORT | Continuity of Care Document ---
:1945 Author Organization [facility] t Address [address] [place] [address] Care Team Providers Name Role Phone Silverio Estevez Attending Clinician Unavailable Problems Condition Condition Condition Status Onset Resolution Last Treating Co mments Source Name Details Category Date Date Treatment Clinician Date BPH with BPH with Problem Active Commo n obstructio obstructio Sp gustavo n/lower n/lower - [facility] Prostate Prostate Problem Active Commo n cancer cancer [facility] Allergies, Adverse Reactions, Alerts This patient has no known allergies or adverse reactions. Medications Ordered Filled Start Stop Current Ordering Indication Dosage Frequency Signature Comments Components Source Medication Medication Date Date Medication? Clinician (SIG) Name Name Albuterol Albuterol Yes Micheline 3 ml as C ommon Sulfate Sulfate Dk needed [facility] Pravastatin Pravastatin Yes Micheline 1 tablet Common Sodium Sodium [place] Lisinopril/ Lisinopril/ Yes Micheline 1 tablet Common Hctz Hctz Dk once daily [facility] Procedures This patient has no known procedures. Encounters Start End Encounter Admission Attending Care Care Encounter Source Date/Time Date/Time Type Type Clinicians Facility Department ID 2021-08-26 Outpatient Estevez, [facility] [id number] Common 11:14:54 Silverio [id number] [facility] 2019-12-25 2019-12-25 Outpatient Onelia Lamar [id number] Common 14:58:00 14:58:00 t Specialty[facility]Urology Clinic [facility] 2019-12-17 2019-12-17 Outpatient Onelia Lamar [id number] Common 13:15:00 13:15:00 t Specialty/U Sp gustavo Specialty rology - [facility] 2019-12-10 2019-12-10 Outpatient Onelia Rousseaut [id number] Common 12:14:00 12:14:00 t Specialty/U Sp gustavo Specialty rology - [facility] 2019-11-27 2019-11-27 Outpatient Onelia Rousseaut [id number] Common 15:00:00 15:00:00 t Specialty/U Sp gustavo Specialty rology - [facility] 2019-11-21 2019-11-21 Outpatient Onelia Rousseaut [id number] Common 11:32:00 11:32:00 t Specialty/U Sp gustavo Specialty rology - [facility] 2019-11-21 2019-11-21 Outpatient Onelia Rousseaut [id number] Common 10:00:00 10:00:00 t Specialty/U Sp gustavo Specialty rology - [facility] 2019-10-19 2019-10-19 [place]patient [place]elia [place] [id number] Common 10:00:00 10:00:00 t Specialty/U Sp gustavo Specialty rology - [facility] Results This patient has no known results.
[2022-08-17 13:41] LABS: Absolute Lymphocytes (CBC) 1.1 K/uL (0.7-4.9); Hematocrit 36.8 % (39.6-49.0); Lymphocytes % 13.8 % (15.3-44.8); MCV 87.2 fL (80-100); RBC Red Blood Cell Count 4.21 M/uL (4.33-5.43)
[2022-08-17 14:05] LABS: Albumin 3.8 g/dL (3.4-5.0); Bilirubin Total 0.4 mg/dL (0.2-1.0); Potassium 3.8 mmol/L (3.5-5.1); Protein, Total 7.9 g/dL (6.4-8.2); Troponin High Sensitivity 8.4 pg/mL (<58.9)
--- NOTE | 2022-08-17 14:16 | RAD REPORT ---
EXAM DESCRIPTION: RAD - Chest Single View - 08/17/2022 2:04 pm CLINICAL HISTORY: DYSPNEA COMPARISON: Chest Pa And Lat (2 Views) dated 04/28/2022; Chest Single View dated 10/30/2017; Chest Pa A nd Lat (2 Views) dated 07/05/2017; Chest Pa And Lat (2 Views) dated 04/15/2016 FINDINGS: Lines: None. Lungs: No evidence of edema or pneumonia. Pleural: No significant pleural effusions or pneumothorax. Cardiac: The heart size is within normal limits. Mediastinum: Within normal limits. Bones: No acute fractures. Other: None IMPRESSION: No acute cardiopulmonary disease.
--- NOTE | 2022-08-17 14:46 | EDPHYS ---
Physician Documentation [facility] Name: Gonzalez Stein Jr Age: 77 yrs Sex: Male : 1945 Arrival Date: 08/17/2022 Time: 13:20 Bed 20 Private MD: ED Physician Christopher Echevarria HPI: 08/17 14:47 This 77 yrs old Black Male presents to ER via EMS with complaints of abd pain, kb shortness of breath. 14:39 Patient reports he was out walking through his apartment complex when he developed kb shortness of breath and epigastric pain. Sat down on the curb to rest and symptoms resolved. Called 911 to come get checked out. Patient has no complaints at this time . 14:47 The patient presents with abdominal pain in the epigastric area. Onset: The kb symptoms/episode began/occurred just prior to arrival. The symptoms do not radiate. Associated signs and symptoms: Pertinent positives: shortness of breath. The symptoms are described as constant. Modifying factors: The symptoms are alleviated by remaining still, the symptoms are aggravated by walking. Severity of pain: At its worst the pain was moderate in the emergency department the pain is unchanged. The patient has not experienced similar symptoms in the past. The patient has not recently seen a physician. Historical: - Allergies: 13:24 No Known Allergies; bp - Home Meds: 13:24 pravastatin 20 mg Oral tab 1 tab once daily [Active]; lisinopril-hydrochlorothiazide bp 20-25 mg Oral tab 1 tab once daily [Active]; aspirin 81 mg Oral TbEC 1 tab once daily [Active]; albuterol sulfate 0.63 mg/3 mL Inhl nebu [Active]; tamsulosin 0.4 mg oral cap 1 cap once daily [Active]; - PMHx: 13:24 COPD; Emphysema; High Cholesterol; Hypertension; TIA; bp - PSHx: 13:24 hernia repair- 1964; bp - Immunization history:: Adult Immunizations up to date. - Social history:: Smoking status: Patient denies any tobacco usage or history of. ROS: 14:32 Constitutional: Negative for fever, chills, and weight loss. kb 14:32 Respiratory: Positive for dyspnea on exertion, shortness of breath. 14:32 Abdomen/GI: Positive for abdominal pain, Negative for nausea, vomiting, and diarrhea. 14:32 All other systems are negative. Exam: 13:55 Constitutional: This is a well developed, well nourished patient who is awake, alert, kb and in no acute distress. Head/Face: Normocephalic, atraumatic. ENT: Moist Mucous membranes Neck: Trachea midline, no thyromegaly or masses palpated, and no cervical lymphadenopathy. Supple, full range of motion without nuchal rigidity, or vertebral point tenderness. No Meningismus. Chest/axilla: Normal chest wall appearance and motion. Cardiovascular: Regular rate and rhythm with a normal S1 and S2. No gallops, murmurs, or rubs. No pulse deficits. Respiratory: Respirations even and unlabored. No increased work of breathing. Talking in full sentences Abdomen/GI: Soft, non-tender. No distention Skin: Warm, dry with normal turgor. Normal color. MS/ Extremity: Pulses equal, no cyanosis. Neurovascular intact. Full, normal range of motion. Neuro: Awake and alert, GCS 15, oriented to person, place, time, and situation. Moves all extremities. Normal gait. 13:55 ECG was reviewed by the Attending Physician. Vital Signs: 13:22 BP 143 / 89; Pulse 84; Resp 16; Temp 98; Pulse Ox 99% ; Weight 52.16 kg; Height 5 ft. 8 bp in. (172.72 cm); 15:00 BP 134 / 75; Pulse 72; Resp 24; Pulse Ox 100% ; bp 16:00 BP 113 / 71; Pulse 63; Resp 23; Pulse Ox 100% ; bp 17:00 BP 102 / 69; Pulse 72; Resp 24; Pulse Ox 99% ; bp 18:00 BP 111 / 58; Pulse 88; Resp 29; Pulse Ox 99% ; bp 19:10 BP 95 / 57; Pulse 74; Resp 20; Pulse Ox 100% ; Pain 0/10; jj7 13:22 Body Mass Index 17.49 (52.16 kg, 172.72 cm) bp MDM: 13:22 Patient medically screened. kb 14:32 Differential diagnosis: coronary artery disease, myocardia ischemia or infarction, kb non-specific abd pain. Data reviewed: vital signs, nurses notes. Management of patient was discussed with the following: Hospitalist: YVONNE Quinonez wants cardiology consult prior to admission. Manager Pediatric: Dr Raslan, wants amiodarone drip started. Independent interpretation of the following test(s) in the Emergency Department EKG: See my EKG interpretation above. Historians other than the Patient: EMS: [facility]. External Records Reviewed: Inpatient record: previous EKG and creatinine reviewed . Counseling: I had a detailed discussion with the patient and/or guardian regarding: the historical points, exam findings, and any diagnostic results supporting the discharge/admit diagnosis, lab results, radiology results, the need for further work-up and treatment in the hospital. 08/17 13:23 Order name: CBC with Diff; Complete Time: 13:43 kb 08/17 13:23 Order name: CMP; Complete Time: 14:11 kb 08/17 13:23 Order name: Lipase; Complete Time: 14:11 kb 08/17 13:23 Order name: Troponin High Sensitivity; Complete Time: 14:11 kb 08/17 14:39 Order name: SARS RAPID; Complete Time: 16:24 kb 08/17 16:32 Order name: Troponin High Sensitivity EDDE 08/17 16:32 Order name: Troponin High Sensitivity; Complete Time: 18:20 EDMS 08/17 16:32 Order name: Troponin High Sensitivity EDMS 08/17 16:35 Order name: Creatine Phosphokinase; Complete Time: 17:39 EDMS 08/17 16:35 Order name: Magnesium; Complete Time: 17:39 EDMS 08/17 16:35 Order name: Phosphorus; Complete Time: 17:39 EDMS 08/17 16:35 Order name: T4 Free; Complete Time: 17:39 EDMS 08/17 16:35 Order name: Thyroid Stimulating Hormone; Complete Time: 17:39 EDMS 08/17 16:35 Order name: Urinalysis EDMS 08/17 13:23 Order name: IV Saline Lock; Complete Time: 13:36 kb 08/17 13:23 Order name: Labs collected and sent; Complete Time: 13:36 kb 08/17 13:23 Order name: EKG; Complete Time: 13:23 kb 08/17 13:23 Order name: Chest Single View XRAY; Complete Time: 14:20 kb 08/17 16:26 Order name: CONS Physician Consult EDMS 08/17 16:27 Order name: EKG Electrocardiogram EDMS 08/17 16:35 Order name: Basic Metabolic Panel EDMS 08/17 16:35 Order name: Basic Metabolic Panel EDDE 08/17 16:35 Order name: CBC with Automated Diff EDMS 08/17 16:35 Order name: CBC with Automated Diff EDDE 08/17 16:35 Order name: NT PRO-BNP EDMS 08/17 16:35 Order name: NT PRO-BNP EDDE 08/17 16:36 Order name: Heart Healthy EDDE 08/17 16:38 Order name: Echo with Doppler EDDE 08/17 13:23 Order name: EKG - Nurse/Tech; Complete Time: 13:36 kb EC:55 Rate is 73 beats/min. QRS interval is normal at 78 msec. QT interval is normal at 398 kb msec. Clinical impression: Atrial Flutter. Administered Medications: 15:00 Drug: amiodarone 150 mg Volume: 100 ml; Route: IVPB; Infused Over: 10 mins; Site: right bp forearm; 17:14 Follow up: IV Status: Completed infusion; IV Intake: 100ml bp 15:15 Drug: amiodarone 900 mg, D5W 500 ml Route: IVPB; Rate: 1 mg/min; Site: right forearm; bp Disposition Summary: 08/17/22 14:45 Hospitalization Ordered Provider: Gelacio Meyers Condition: Stable kb Problem: new kb Symptoms: are unchanged kb Bed/Room Type: Standard Hospitalization Status: Inpatient Admission(08/17/22 16:19) kb Location: Intensive Care Unit(08/17/22 16:19) kb Room Assignment: 2-(08/17/22 17:54) Diagnosis - Unspecified atrial flutter kb Forms: - Medication Reconciliation Form kb - SBAR form kb Addendum: 08/21/2022 19:10 Co-signature as Attending Physician, Christopher Echevarria MD I reviewed the patient's care r t provided by the Advanced Practice Provider and agree with the diagnosis and treatment plan. Signatures: Dispatcher [employer] [facility] Alexandria Millan FNP-C FNP-Christi Carrillo RN RN Ras Ramirez RN RN Christopher Alba MD MD rt Corrections: (The following items were deleted from the chart) 08/17 13:56 13:55 Rate is 73 beats/min. QRS interval is normal at 78 msec. QT interval is normal at kb 398 msec. kb 16:19 14:45 Observation kb kb 16:19 14:45 Telemetry/MedSurg (observation) kb kb 16:19 14:45 kb kb 17:54 16:19 kb dw
--- NOTE | 2022-08-17 14:46 | ER ---
Nurse's Notes [facility] Name: Gonzalez Stein Jr Age: 77 yrs Sex: Male : 1945 Arrival Date: 08/17/2022 Time: 13:20 Bed 20 Private MD: Diagnosis: Unspecified atrial flutter Presentation: 08/17 13:22 Chief complaint: EMS states: ABDOMINAL PAIN WHILE WALKING, NOW RESOLVED. Coronavirus bp screen: At this time, the client does not indicate any symptoms associated with coronavirus-19. Ebola Screen: No symptoms or risks identified at this time. Initial Sepsis Screen: Does the patient meet any 2 criteria? No. Patient's initial sepsis screen is negative. Does the patient have a suspected source of infection? No. Patient's initial sepsis screen is negative. Risk Assessment: Do you want to hurt yourself or someone else? Patient reports no desire to harm self or others. Onset of symptoms is unknown. 13:22 Method Of Arrival: EMS: [facility] bp 13:22 Acuity: SHASHANK 3 bp Triage Assessment: 13:24 General: Appears in no apparent distress. comfortable, Behavior is calm, cooperative, bp appropriate for age. Pain: Denies pain. EENT: No deficits noted. Neuro: No deficits noted. Cardiovascular: Rhythm is sinus rhythm. Respiratory: No deficits noted. GI: Reports upper abdominal pain, NOW RESOLVED. : No signs and/or symptoms were reported regarding the genitourinary system. Derm: No deficits noted. Musculoskeletal: No deficits noted. Historical: - Allergies: 13:24 No Known Allergies; bp - Home Meds: 13:24 pravastatin 20 mg Oral tab 1 tab once daily [Active]; lisinopril-hydrochlorothiazide bp 20-25 mg Oral tab 1 tab once daily [Active]; aspirin 81 mg Oral TbEC 1 tab once daily [Active]; albuterol sulfate 0.63 mg/3 mL Inhl nebu [Active]; tamsulosin 0.4 mg oral cap 1 cap once daily [Active]; - PMHx: 13:24 COPD; Emphysema; High Cholesterol; Hypertension; TIA; bp - PSHx: 13:24 hernia repair- 1965; bp - Immunization history:: Adult Immunizations up to date. - Social history:: Smoking status: Patient denies any tobacco usage or history of. Screenin:26 [facility] ED Fall Risk Assessment (Adult) History of falling in the last 3 months, bp including since admission No falls in past 3 months (0 pts). Abuse screen: Denies threats or abuse. Denies injuries from another. Nutritional screening: No deficits noted. Tuberculosis screening: No symptoms or risk factors identified. Assessment: 13:26 General: SEE TRIAGE NOTE. bp 15:00 Reassessment: ADMIT INITIATED. bp 17:00 Reassessment: ADMIT IN PROCESS. PT REMAINS IN AFLUTTER. bp 19:10 Reassessment: Patient is alert, oriented x 3, equal unlabored respirations, skin jj7 warm/dry/pink. ASSUMED CARE OF PT. PT SITTING IN BED. VS STABLE. NO DISTRESS OR PAIN. PT UP FOR ADMISSION. NO NEEDS AT THIS TIME. CALL DELUCA IN REACH. Vital Signs: 13:22 BP 143 / 89; Pulse 84; Resp 16; Temp 98; Pulse Ox 99% ; Weight 52.16 kg; Height 5 ft. 8 bp in. (172.72 cm); 15:00 BP 134 / 75; Pulse 72; Resp 24; Pulse Ox 100% ; bp 16:00 BP 113 / 71; Pulse 63; Resp 23; Pulse Ox 100% ; bp 17:00 BP 102 / 69; Pulse 72; Resp 24; Pulse Ox 99% ; bp 18:00 BP 111 / 58; Pulse 88; Resp 29; Pulse Ox 99% ; bp 19:10 BP 95 / 57; Pulse 74; Resp 20; Pulse Ox 100% ; Pain 0/10; jj7 13:22 Body Mass Index 17.49 (52.16 kg, 172.72 cm) bp ED Course: 13:20 Patient arrived in ED. kb 13:20 Alexandria Millan FNP-C is PHCP. kb 13:20 Christopher Echevarria MD is Attending Physician. kb 13:22 Ras Crum, MUNIR is Primary Nurse. bp 13:24 Triage completed. bp 13:24 Arm band placed on. bp 13:26 Patient has correct armband on for positive identification. Bed in low position. Call bp light in reach. Side rails up X2. 13:30 Inserted saline lock: 22 gauge in right forearm, using aseptic technique. Blood bp collected. 14:06 Chest Single View XRAY In Process Unspecified. EDMS 14:45 Gelacio Meyers MD is Hospitalizing Provider. kb 19:26 Primary Nurse role handed off by Ras Crum, RN mw2 19:34 Amanda Wright, RN is Primary Nurse. jj7 19:40 No provider procedures requiring assistance completed. Patient admitted, IV remains in [address] place[address] intact. Administered Medications: 15:00 Drug: amiodarone 150 mg Volume: 100 ml; Route: IVPB; Infused Over: 10 mins; Site: right bp forearm; 17:14 Follow up: IV Status: Completed infusion; IV Intake: 100ml bp 15:15 Drug: amiodarone 900 mg, D5W 500 ml Route: IVPB; Rate: 1 mg/min; Site: right forearm; bp Medication: 13:26 VIS not applicable for this client. bp Intake: 17:14 IV: 100ml; Total: 100ml. bp Outcome: 14:45 Decision to Hospitalize by Provider. kb 19:40 Admitted to ICU accompanied by nurse, room 2, Report called to JESSE AMARAL jj7 19:40 Condition: improved 20:00 Patient left the ED. mw2 Signatures: Dispatcher [employer] EDMS Alexandria Millan, COPY SUPERVISOR-C COPY SUPERVISOR-Ckb Ras Crum, RN RN Sera Bassett mw2 Amanda Wright, MUNIR AMARAL jj7
--- NOTE | 2022-08-17 15:02 | EKG ---
Test Date: 2022-08-17 Test Time: 13:38:31 Equipment Validation Engineer: SILVINA MEASUREMENT RESULTS: Intervals: Rate: 73 MD: QRSD: 78 QT: 362 QTc: 398 [place]: P: 81 MD: QRS: 62 T: 65 INTERPRETIVE STATEMENTS: Atrial flutter with 4:1 AV conduction Abnormal ECG Compared to ECG 10/25/2020 14:57:44 Sinus rhythm no longer present Sinus arrhythmia no longer present T-wave abnormality no longer present Electronically Signed On 08-17-22 15:02:07 CASTING INSPECTOR by Carson Bowman
[2022-08-17] MEDS ORDERED: AMIODARONE IN DEXTROSE,ISO-OSM 360 MG/200 ML BAG IV ONE (15:22)
[2022-08-17] MEDS ORDERED: AMIODARONE HCL 150 MG/3 ML INJ IV ONE (15:22)
[2022-08-17 16:23] LABS: SARS-CoV-2 Antigen Rapid Res Negative (Negative)
[2022-08-17] MEDS ORDERED: HYDROCODONE/APAP 5/325 MG TAB PO PRN (16:25)
[2022-08-17] MEDS ORDERED: ACETAMINOPHEN 325 MG TABLET PO PRN (16:25)
[2022-08-17] MEDS ORDERED: ONDANSETRON 4 MG/2 ML VIAL IV PRN (16:31)
--- NOTE | 2022-08-17 16:36 | P.HP ---
Certification for Inpatient Patient admitted to: Observation With expected LOS: <2 Midnights Patient will require the following post-hospital care: None Practitioner: I am a practitioner with admitting privileges, knowledge of patient current condition, hospital course, and medical plan of care. Services: Services provided to patient in accordance with Admission requirements found in Title 42 Section 412.3 of the Code of Federal Regulations Patient History Date of Service: 08/17/22 Reason for admission: Shortness of breath. 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 Patient reported associated signs and symptoms of fatigue, weakness and epigastric pain rated as 3/10 and described pain as tightness in quality. Patient denies any other signs and symptoms. Symptoms are aggravated or relieved by nothing. Patient decided to present to the hospital for medical evaluation. Of note, patient reported that he was told that he had arrhythmia by his PCP 5 years ago but patient has never been treated for arrhythmia. Of note, patient reports resolution of shortness of breath and abdominal pain while in the ER. Allergies No Known Allergies Allergy (Unverified 07/06/17 01:18) - Past Medical/Surgical History -: COPD -: Hypertension -: HLD -: TIA Past Surgical History: Reviewed- Non-Contributory - Family History Family History: Reviewed- Non-Contributory - Social History Smoking Status: Never smoker Alcohol use: No CD- Drugs: No Caffeine use: Yes Place of Residence: Home Review of Systems General: Weakness, Other (Fatigue) Eyes: Unremarkable ENT: Unremarkable Respiratory: Shortness of Breath Cardiovascular: Unremarkable Gastrointestinal: Abdominal Pain Genitourinary: Unremarkable Musculoskeletal: Unremarkable Integumentary: Unremarkable Neurological: Weakness Lymphatics: Unremarkable Physical Examination - Physical Exam General: Alert, In no apparent distress, Oriented x3, Cooperative HEENT: Atraumatic, PERRLA, Mucous membr. moist/pink, EOMI, Sclerae nonicteric Neck: Supple, 2+ carotid pulse no bruit, No LAD, Without JVD or thyroid abnormality Respiratory: Clear to auscultation bilaterally, Normal air movement Cardiovascular: No edema, Regular rate/rhythm, Normal S1 S2 Capillary refill: <2 Seconds Gastrointestinal: Normal bowel sounds, Soft and benign, Non-distended, No tenderness Musculoskeletal: No clubbing, No swelling, No contractures, No tenderness Integumentary: No rashes, No significant lesion, No tenderness/swelling, No erythema Neurological: Normal speech, Normal tone, Normal affect Lymphatics: No axilla or inguinal lymphadenopathy - Studies Laboratory Data (last 24 hrs) 08/17/22 13:30: Sodium 136, Potassium 3.8, BUN 41 H, Creatinine 1.73 H, Glucose 95, Total Bilirubin 0.4, AST 18, ALT 20, Alkaline Phosphatase 71, Lipase 130 08/17/22 13:30: WBC 8.10, Hgb 12.4 L, Hct 36.8 L, Plt Count 205 Assessment and Plan - Plan --Atrial flutter. Noted on EKG. Cardiology consulted. Patient placed on amiodarone drip per it security engineer recommendation. Echocardiogram pending to assess cardiac structures and function. We will trend serial troponins. Telemetry to monitor for any malignant arrhythmia. Patient placed on heparin drip. We will further recommendation per it security engineer. -- RORY. Likely secondary to volume depletion. Continue IV hydration. Will reassess renal functions in a.m. --COPD. Stable. Continue medication. --Hypertension. Poorly controlled. We will manage BP with hydralazine as needed. --HLD. Continue statin. --Epigastric pain. Patient reports a history of CAD. Patient placed on Protonix. . Patient denies abdominal pain at time of assessment. --History of TIA. Continue aspirin and statin. --DVT prophylaxis with heparin drip. Discharge Plan: Home Plan to discharge in: 48 Hours - Advance Directives Does patient have a Living Will: No Does patient have a Durable POA for Healthcare: No - Code Status/Comfort Care Code Status Assessed: Yes Physician Review: Patient Assessed, Agree with Above Assessment and Plan Critical Care: No
[2022-08-17] MEDS ORDERED: NA CHLORIDE 0.9% 1,000 ML IV SCH (17:00)
[2022-08-17] MEDS ORDERED: AMIODARONE HCL 900 MG in Dextrose 5%-Water 482 ML IV SCH (17:00)
[2022-08-17] MEDS ORDERED: HEPARIN/D5W 25,000 UNIT/500 ML BAG IV PRN (17:00)
[2022-08-17 17:39] LABS: Magnesium 1.9 mg/dL (1.6-2.4); Phosphorus 2.9 mg/dL (2.5-4.9); Thyroid Stimulating Hormone 2.08 uIU/mL (0.358-3.740)
--- NOTE | 2022-08-17 19:23 | CON ---
Date of Consultation: 08/17/2022 Reason For Consultation: Atrial flutter and shortness of breath on exertion. History Of Present Illness: This is a 77-year-old male with past medical history of dyslipidemia, hy pertension, COPD, and TIA who presented to the emergency room after he had a sudden shortness of [place] th. He was walking outside and developed sudden shortness of breath and epigastric and lower chest p ain. When he sat down and rested, symptoms resolved. He called 911 and he was brought into the [facility] room. In the EKG he is in atrial flutter, but rate is controlled and has no further symptoms. Past Medical History: As outlined above in the HPI. Medications: Refer to reconciliation sheet for detailed list. Allergies: NO KNOWN DRUG ALLERGIES. Family History: No premature coronary artery disease or cancer. Social History: He does not drink or smoke or use any drugs. Review of Systems: All systems reviewed and they were negative except for mentioned in HPI. Laboratory Data: BUN 41, creatinine is 1.73 and his troponin is 8.4. On reviewing his creatinine, i t has always been running around 1.5, which is his baseline. His hemoglobin is 12.4 and white blood cell count is 8.1. Chest x-ray showed no acute cardiopulmonary disease. Assessment/recommendation: 1.Atrial flutter, rate is controlled. Recommend amiodarone load 150 mg over 10 minutes and then 1 m g/minute for 6 hours, then 0.5 mg/minute for 16 hours and also initiate anticoagulation with Eliquis at 2.5 mg twice a day and within 24 hours if he does not convert to sinus rhythm, we will plan for TE E-guided cardioversion in. Also please obtain echocardiogram. 2.Shortness of breath on exertion, sudden. Check D-dimer. Start him on anticoagulation as outlined above and obtain an echo. Also please trend troponin as his symptoms were exertional and this could be an angina equivalent. I will be monitoring the patient with you. SR/MODL Voice ID: [id number] Report ID: [id number]
[2022-08-17] MEDS ORDERED: HYDRALAZINE HCL 20 MG/ML VIAL IV PRN (19:39)
[2022-08-17] MEDS ORDERED: SODIUM CHLORIDE 0.9% 10ML INJ IV PRN (19:45)
[2022-08-17] MEDS ORDERED: PANTOPRAZOLE 40 MG INJ IVP SCH (21:00)
[2022-08-17] MEDS ORDERED: HEPARIN 5000 UNIT/ML 1 ML VIAL SQ SCH (21:00)
[2022-08-17] MEDS: ATORVASTATIN 40 MG TAB PO SCH (21:08)
[2022-08-18 04:41] LABS: Absolute Lymphocytes (CBC) 1.2 K/uL (0.7-4.9); Hematocrit 33.2 % (39.6-49.0); MCV 86.8 fL (80-100); MPV 7.9 fL (7.6-11.3); Potassium 3.6 mmol/L (3.5-5.1); RBC Red Blood Cell Count 3.82 M/uL (4.33-5.43)
--- NOTE | 2022-08-18 06:13 | P.PN ---
Date of Service: 08/18/22 Subjective: no acute events overnight no chest pain, no SOB feels back to baseline HR: 60-70s, aflutter ROS: A complete review of systems was performed and is negative except as mentioned above Physical Exam: Gen: NAD, AOx3 HEENT: normal conjunctiva, sclera anicteric CV: irregularly irregular rhythm, no edema Pulm: non-labored respirations, clear bilaterally Abd: soft, non-tender, non-distended Neuro: normal speech, normal affect, moves all extremities vitals reviewed Problem List A flutter, new onset RORY COPD HTN HLD h/o TIA started amio drip and heparin drip on admission cardiology consulted transitioned to eliquis on 08/18, renally dosed rate controlled, but remains in aflutter transition to PO amio per cardiology recs tentative CLAUDIA cardioversion in AM if not sinus VTE: eliquis Code: full Dispo: home, ~24-48hrs
[2022-08-18] MEDS: ASPIRIN 81 MG CHEWABLE TABLET PO SCH (08:38)
[2022-08-18] MEDS: APIXABAN 2.5 MG TABLET PO SCH ×2 (08:38→20:32)
[2022-08-18] MEDS: PANTOPRAZOLE 40MG TABLET PO SCH (08:38)
[2022-08-18] MEDS ORDERED: POTASSIUM 25 MEQ EFFERV TAB PO ONE (09:00)
[2022-08-18 11:09] LABS: Urine Bacteria None Seen /HPF (<20); Urine RBC None Seen /HPF (None Seen)
[2022-08-18 11:17] LABS: Specific Gravity 1.011 (1.005-1.030); Urine Bilirubin NEGATIVE (Negative); Urine Blood Negative (Negative); Urine Clarity Clear (Clear); Urine Color Colorless (Yellow); Urine Glucose NEGATIVE (Negative); Urine Protein NEGATIVE (Negative); Urine Urobilinogen Normal (Normal)
--- NOTE | 2022-08-18 13:55 | RAD REPORT ---
EXAM DESCRIPTION: NM - Vent Perfusion VQ Scan - 08/18/2022 1:40 pm CLINICAL HISTORY: Shortness of breath COMPARISON: August 17, 2022 x-ray TECHNIQUE: 18.9 Mci [id number] was administered by inhalation. First breath, equilibrium, and washout images of the lungs obtained 7.1 millicuries Technetium-99 MAA was administered intravenously. Anterior, posterior, lateral and ob lique views of the lungs were taken. FINDINGS: Diminished radiotracer activity involves the fissures. Lungs generally demonstrate matched perfusion defects on perfusion and ventilation sequences. No mismatched segmental or lobar perfusion defects are seen. COPD is noted IMPRESSION: The patient has a relatively low probability for a pulmonary embolus
--- NOTE | 2022-08-18 19:27 | PN ---
Date of Progress Note: 08/18/2022 Subjective: Seen by bedside. Heart rate is controlled. No new complaints. Review of Systems: No chest pain, shortness of breath, orthopnea, cough. No nausea, vomiting, diarrhea. All other syst ems reviewed and they are negative. Physical Examination: Vital Signs: Temperature is 98.5, pulse 62, breathing at 17, blood pressure is 111/55, saturating 96 % on room air. General: Pleasant elderly male, in no apparent distress. Head and Neck: Pupils are equal, reactive to light. Intact eye movements. No JVD. No cervical lym phadenopathy. Neck is supple. Thyroid is not enlarged. Lungs: Clear to auscultation bilaterally. No rhonchi, wheezing, or crackles. No accessory muscle u se. Heart: Regular. No extra sounds. Abdomen: Soft, nontender. Bowel sounds positive. No organomegaly. No masses or hernia. No rigidi ty or rebound. Extremities: No clubbing, cyanosis. Intact pulses. Skin: No rash. Neuro: Alert, awake, oriented x3. No acute focal deficits appreciated. Investigations: Troponins x3 are negative. D-dimer was 2200. BUN 37, creatinine 1.53 and V/Q scan was very low probability for PE. Assessment/recommendations: 1.Atrial flutter, rate now is controlled. Continue full 24 hours load and then switch to amiodarone 200 mg by mouth twice a day. Once the drip is discontinued, continue Eliquis. If he continues to b e in atrial flutter by tomorrow morning, we will plan for a CLAUDIA-guided cardioversion. 2.Shortness of breath. This is likely due to diastolic heart failure. There is no PE on V/Q scan. Patient might require gentle diuresis down the road. 3.Dyslipidemia. Continue statin. SR/MODL Voice ID: [id number] Report ID: [id number]
[2022-08-18] MEDS: ENSURE ENLIVE 237 ML CAN PO SCH (20:31)
[2022-08-18] MEDS: AMIODARONE HCL 200 MG TAB PO SCH (20:32)
[2022-08-18] MEDS: ATORVASTATIN 40 MG TAB PO SCH (20:32)
[2022-08-18] MEDS: MELATONIN 5 MG TABLET PO PRN (21:22)
[2022-08-19] MEDS: PANTOPRAZOLE 40MG TABLET PO SCH (04:02)
[2022-08-19 06:13] LABS: Albumin 3.3 g/dL (3.4-5.0); Bilirubin Total 0.6 mg/dL (0.2-1.0); Magnesium 1.8 mg/dL (1.6-2.4); Potassium 4.1 mmol/L (3.5-5.1); Protein, Total 7.3 g/dL (6.4-8.2)
--- NOTE | 2022-08-19 07:15 | ECHO ---
HEIGHT: 5 ft 8 in WEIGHT: 130 lb 9.6 oz DATE OF STUDY: 08/18/[address]: Dhiraj Johnson 2-DIMENSIONAL: YES M.MODE: YES DOPPLER: YES COLOR FLOW: YES TDS: NO PORTABLE: YES DEFINITY: NO BUBBLE STUDY: NO DIAGNOSIS: ATRIAL FLUTTER CARDIAC HISTORY: CATHERIZATION: NO SURGERY: NO PROSTHETIC VALVE: NO PACEMAKER: NO MEASUREMENTS (cm) DIASTOLIC (NORMALS) SYSTOLIC (NORMALS) IVSd 0.7 (0.6-1.2) LA Diam 3.3 (1.9-4.0) LVEF 45-50% LVIDd 2.8 (3.5-5.7) LVIDs 1.5 (2.0-3.5) %FS 48% LVPWd 0.9 (0.6-1.2) Ao Diam 2.5 (2.0-3.7) 2 DIMENSIONAL ASSESSMENT: RIGHT ATRIUM: NORMAL LEFT ATRIUM: NORMAL RIGHT VENTRICLE: NORMAL LEFT VENTRICLE: NORMAL TRICUSPID VALVE: MILD TRICUSPID REGURGITATION MITRAL VALVE: MILD TO MODERATE MITRAL STENOSIS PULMONIC VALVE: NORMAL AORTIC VALVE: MILD AORTIC INSUFFICIENCY PERICARDIAL EFFUSION: NONE AORTIC ROOT: NORMAL LEFT VENTRICULAR WALL MOTION: MILD GLOBAL HYPOKINESIS. DOPPLER/COLOR FLOW: SEE BELOW. COMMENTS: 1. MILDLY DEPRESSED LEFT VENTRICULAR EJECTION FRACTION 45-50%. WITH MILD GLOBAL HYPOKINESIS. 2. MODERATE MITRAL STENOSIS (RHEUMATIC) AND MILD MITRAL REGURGITATION. 3. MILD TRICUSPID REGURGITATION. 4. MILD AORTIC INSUFFICIENCY. 5. 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 TECHNOLOGIST: LUNA DAVILA
[2022-08-19] MEDS: AMIODARONE HCL 200 MG TAB PO SCH ×2 (07:20→20:25)
[2022-08-19] MEDS: APIXABAN 2.5 MG TABLET PO SCH ×2 (07:20→20:25)
[2022-08-19] MEDS: ASPIRIN 81 MG CHEWABLE TABLET PO SCH (07:20)
[2022-08-19] MEDS: ENSURE ENLIVE 237 ML CAN PO SCH ×2 (07:20→21:38)
--- NOTE | 2022-08-19 17:30 | PN ---
Date of Progress Note: 08/19/2022 Subjective: Continues to be in atrial flutter. No distress. Review of Systems: No chest pain. No significant shortness of breath. No nausea, vomiting, diarrhea. All other system s reviewed and they were negative. Physical Examination: Vital Signs: Reviewed. Head and Neck: Pupils are equal, reactive to light. Intact eye movements. No JVD. No cervical lym phadenopathy. Neck is supple. Thyroid is not enlarged. Lungs: Clear to auscultation bilaterally. No rhonchi, wheezing, or crackles. No accessory muscle u se. Heart: Irregular. No extra sounds. Abdomen: Soft, nontender. Bowel sounds positive. No organomegaly. No masses or hernia. No rigidi ty or rebound. Extremities: No clubbing or cyanosis. Intact pulses. Skin: No rash. Neurologic: Alert, awake. No acute focal deficits appreciated. Investigations: BUN 28, creatinine 1.6. Troponins are negative. Assessment And Recommendations: 1.Atrial flutter/fibrillation. Loaded with amiodarone and currently is on p.o. amiodarone, continue that and Eliquis. Plan for CLAUDIA-guided cardioversion once feasible. 2.Chronic kidney disease. This is stable. 3.Dyslipidemia. Continue statin. SR/MODL Voice ID: [id number] Report ID: [id number]
[2022-08-19] MEDS: POTASS/SODIUM PHOSPHATE 1 PKT POWD.PACK PO SCH ×3 (19:21→21:39)
--- NOTE | 2022-08-19 20:12 | P.PN ---
Date of Service: 08/19/22 Subjective: no acute events overnight no chest pain, no SOB remains in aflutter, HR < 100 ROS: A complete review of systems was performed and is negative except as mentioned above Physical Exam: Gen: NAD, AOx3 HEENT: normal conjunctiva, sclera anicteric CV: irregularly irregular rhythm, no edema Pulm: non-labored respirations, clear bilaterally Abd: soft, non-tender, non-distended Neuro: normal speech, normal affect, moves all extremities vitals reviewed Problem List A flutter, new onset RORY COPD HTN HLD h/o TIA started amio drip and heparin drip on admission cardiology consulted transitioned to eliquis on 08/18, renally dosed rate controlled, but remains in aflutter transitioned to PO amio 08/18 evening per cardiology recs tentative CLAUDIA cardioversion in AM if not sinus d-dimer elevated avoiding CTA due to renal function VQ scan with low probability for PE; pt not hypoxic VTE: eliquis Code: full Dispo: home, ~24hrs
[2022-08-19] MEDS: MELATONIN 5 MG TABLET PO PRN (20:25)
[2022-08-19] MEDS: ATORVASTATIN 40 MG TAB PO SCH (20:25)
[2022-08-20 05:41] LABS: Bilirubin Total 0.4 mg/dL (0.2-1.0); Magnesium 1.8 mg/dL (1.6-2.4); Phosphorus 2.7 mg/dL (2.5-4.9); Potassium 4.2 mmol/L (3.5-5.1); Protein, Total 6.9 g/dL (6.4-8.2)
[2022-08-20 05:43] VITALS: BMI 18.2
[2022-08-20] MEDS: PANTOPRAZOLE 40MG TABLET PO SCH (05:46)
[2022-08-20] MEDS ORDERED: MIDAZOLAM HCL 2 MG/2 ML INJ ONE (07:01)
[2022-08-20] MEDS ORDERED: METOPROLOL TARTRATE 5 MG/5 ML INJ IV ONE (07:01)
[2022-08-20] MEDS ORDERED: FENTANYL CITR 100 MCG/2 ML ONE (07:01)
[2022-08-20] MEDS ORDERED: MIDAZOLAM HCL 5 ML ONE (07:01)
[2022-08-20] MEDS ORDERED: ATROPINE SULF 1 MG/10 ML SYR IV ONE (07:02)
[2022-08-20] MEDS ORDERED: HYDRALAZINE HCL 20 MG/ML VIAL ONE (07:02)
[2022-08-20] MEDS ORDERED: FLUMAZENIL 0.1 MG/ML (5 mL VIAL) IV ONE (07:02)
[2022-08-20] MEDS ORDERED: LIDOCAINE VISCOUS 2% SOLN 15 ML UDC ONE (07:15)
[2022-08-20] MEDS ORDERED: PHENOL 1.4% ORAL SPRAY 180ML ONE (07:15)
[2022-08-20] MEDS ORDERED: NA CHLORIDE 0.9% 500 ML ONE ×2 (07:37→07:41)
[2022-08-20] MEDS ORDERED: MAGNESIUM SULFATE 1 gm IVPB 1 GM/100 ML BAG IV ONE (09:00)
[2022-08-20] MEDS: ENSURE ENLIVE 237 ML CAN PO SCH ×2 (09:43→20:37)
[2022-08-20] MEDS: ASPIRIN 81 MG CHEWABLE TABLET PO SCH (09:46)
[2022-08-20] MEDS: APIXABAN 2.5 MG TABLET PO SCH (09:46)
[2022-08-20] MEDS: AMIODARONE HCL 200 MG TAB PO SCH ×2 (09:46→20:15)
--- NOTE | 2022-08-20 16:51 | P.PN ---
Date of Service: 08/20/22 Subjective: no acute events overnight no chest pain, no SOB remains in aflutter, HR 60-70s ROS: A complete review of systems was performed and is negative except as mentioned above Physical Exam: Gen: NAD, AOx3 HEENT: normal conjunctiva, sclera anicteric CV: irregularly irregular rhythm, no edema Pulm: non-labored respirations, clear bilaterally, on 1.5LNC this morning Abd: soft, non-tender, non-distended Neuro: normal speech, normal affect, moves all extremities vitals reviewed Problem List A flutter, new onset atrial thrombus RORY COPD HTN HLD h/o TIA started amio drip and heparin drip on admission cardiology consulted transitioned to eliquis on 08/18, renally dosed renall function improved, increase to 5mg BID on 08/20 evening CLAUDIA (08/20): noted thrombus in left atrium; non cardioversion performed rate controlled, but remains in aflutter transitioned to PO amio 08/18 evening per cardiology recs d-dimer elevated avoiding CTA due to renal function VQ scan with low probability for PE; pt not hypoxic VTE: eliquis Code: full Dispo: home, tomorrow pending stable off oxygen, BP control increased eliquis, monitor renal function
--- NOTE | 2022-08-20 19:39 | PN ---
Date of Progress Note: 08/20/2022 Subjective: Seen by bedside, doing well. No new complaints. Review of Systems: No chest pain, shortness of breath, orthopnea, cough, nausea, vomiting, or diarrhea. All other syste ms reviewed and they were negative. Physical Examination: Vital Signs: Reviewed. Head And Neck: Pupils are equal and reactive to light. Intact eye movements. No JVD. No cervical lymphadenopathy. Neck is supple. Thyroid is not enlarged. Lungs: Clear to auscultation bilaterally. No rhonchi, wheezing, or crackles. No accessory muscle u se. Heart: Irregular. No extra sounds. Abdomen: Soft, nontender. Bowel sounds positive. No organomegaly. No masses or hernia. No rigidi ty or rebound. Extremities: No edema, clubbing, or cyanosis. Intact pulses. Skin: No rash. Neurologic: Alert, awake. No acute focal deficits appreciated. Investigations: BUN 25, creatinine 1.43. His hemoglobin is 11.2. Assessment/recommendation: 1.Atrial fibrillation/flutter. I did a CLAUDIA on him today and he has large thrombus in his left atriu m. I recommend to increase the Eliquis to 5 mg twice a day and keep him on amiodarone and from Cardi ology standpoint, the patient can be released and we will plan to repeat his CLAUDIA in about 2 months be ing on Eliquis. 2.Dyslipidemia. Continue statin. 3.Keluz-oy-bvrtcyl kidney disease. Creatinine has improved. SR/MODL Voice ID: [id number] Report ID: [id number]
[2022-08-20] MEDS: ATORVASTATIN 40 MG TAB PO SCH (20:15)
[2022-08-20] MEDS: APIXABAN 5 MG TABLET PO SCH (20:15)
--- NOTE | 2022-08-20 22:45 | OP ---
Date of Procedure: 08/20/2022 Surgeon: PAULINE MUKHERJEE Procedure Performed: Transesophageal echocardiogram. Indication: Atrial fibrillation prior to cardioversion. Complications: None. Description Of Procedure: After risks, benefits, and alternatives were explained, the patient agreed to procedure and signed informed consent. At bedside in ICU, after proper time-out, we used lidocai ne to numb the back of his throat and then we gave 5 mg of Versed and CLAUDIA probe was inserted. CLAUDIA wa s performed without complication and there was a large thrombus in the left atrium. So CLAUDIA probe was removed and no cardioversion was done due to the presence of the thrombus in the left atrium. The p atient tolerated the procedure very well. Conclusion: Large left atrium thrombus. Recommendation: Full anticoagulation with Eliquis 5 mg twice a day. Re-evaluate with CLAUDIA in about 6 weeks. SR/MODL Voice ID: [id number] Report ID: [id number]
[2022-08-21] MEDS: PANTOPRAZOLE 40MG TABLET PO SCH (05:49)
[2022-08-21 06:05] VITALS: O2SAT 100
[2022-08-21 06:06] LABS: Magnesium 1.8 mg/dL (1.6-2.4); Phosphorus 2.6 mg/dL (2.5-4.9); Potassium 4.1 mmol/L (3.5-5.1)
[2022-08-21] MEDS: AMIODARONE HCL 200 MG TAB PO SCH (08:07)
[2022-08-21] MEDS: ASPIRIN 81 MG CHEWABLE TABLET PO SCH (08:07)
[2022-08-21] MEDS: APIXABAN 5 MG TABLET PO SCH (08:07)
[2022-08-21] MEDS: ENSURE ENLIVE 237 ML CAN PO SCH (08:08)
[2022-08-21] MEDS ORDERED: MAGNESIUM SULFATE 1 gm IVPB 1 GM/100 ML BAG IV ONE (09:00)
[2022-08-21 10:19] VITALS: BP 130/66; TEMP 96.4
--- NOTE | 2022-08-23 08:19 | TEE ---
TRANSESOPHAGEAL ECHOCARDIOGRAM REPORT CARDIOLOGY DEPARTMENT DATE OF STUDY: 08/20/2022 HEIGHT: 5'8" WEIGHT: 130 lbs DIAGNOSIS: CARDIOVERSION COUNTRY SINGER COMMENTS: CLAUDIA CARDIAC HISTORY: CATHERIZATION: SURGERY: PROSTHETIC VALVE: PACEMAKER: 2 DIMENSIONAL ASSESSMENT: RIGHT ATRIUM: NORMAL LEFT ATRIUM: ENLARGED RIGHT VENTRICLE: NORMAL LEFT VENTRICLE: NORMAL TRICUSPID VALVE: NORMAL MITRAL VALVE: NORMAL PULMONIC VALVE: NORMAL AORTIC VALVE: NORMAL PERICARDIAL EFFUSION: NONE AORTIC ROOT: NORMAL EJECTION FRACTION: 55-60 % LEFT VENTRICULAR WALL MOTION: NORMAL DOPPLER/COLOR FLOW: NORMAL COMMENTS: 1. NORMAL LEFT VENTRICULAR EJECTION FRACTION 55-60% 2. LEFT ATRIAL APPENDAGE SMOKE IS PRESENT 3. LARGE LEFT ATRIUM MASS 1.6 BY 1.3 [facility] TECHNOLOGIST: LUNA DAVILA
--- NOTE | 2022-08-30 23:26 | P.DS ---
Admission Date: 08/18/22 Discharge Date: 08/21/22 Disposition: ROUTINE DISCHARGE Discharge Condition: GOOD Reason for Admission: Shortness of breath. 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 Patient reported associated signs and symptoms of fatigue, weakness and epigastric pain rated as 3/10 and described pain as tightness in quality. Patient denies any other signs and symptoms. Symptoms are aggravated or relieved by nothing. Patient decided to present to the hospital for medical evaluation. Of note, patient reported that he was told that he had arrhythmia by his PCP 5 years ago but patient has never been treated for arrhythmia. Of note, patient reports resolution of shortness of breath and abdominal pain while in the ER. Hospital Course: Problem List A flutter, new onset atrial thrombus RORY COPD HTN HLD h/o TIA Patient presented with shortness of breath, chest discomfort, not feeling well. Found to have atrial fibrillation / flutter. D-dimer was elevated. Kidney function precluded obtaining CTA, so a VQ scan was performed and reported low probability of a pulmonary embolus. He received IV Amiodarone and anticoagulation with improvement of his heart rate. Cardiology was consulted, planned for CLAUDIA electrical cardioversion, however on CLAUDIA, noted a large thrombus in his left atrium. His eliquis was adjusted for his renal function, which improved, Cr < 1.5 and his oxygen was weaned down to room air. He was deemed stable for discharge on amiodarone 200mg twice daily and eliquis 5mg twice daily. Follow up with Cardiology in 1-2 weeks. Plan for repeat CLAUDIA in ~2 months to re-evaluate thrombus and possibility of electrical cardioversion if needed at that time. Blood pressure throughout hospitalization was low-normal. This combined with mild RORY, recommend stopping lisinopril-HCTZ for now. Monitor blood pressure at home. Further discussion with Cardiology on folllow up if/when appropriate to restart. Follow up: PCP within 1 week Cardiology in 1-2 weeks. Vital Signs/Physical Exam: Temp Pulse Resp BP Pulse Ox 96.4 F L 66 18 130/66 99 08/21/22 08:00 08/21/22 09:00 08/21/22 09:00 08/21/22 09:00 08/21/22 09:00 Physical Exam: Gen: NAD, AOx3 HEENT: normal conjunctiva, sclera anicteric CV: irregularly irregular rhythm, no edema Pulm: non-labored respirations, clear bilaterally, on room air Abd: soft, non-tender, non-distended Neuro: normal speech, normal affect, moves all extremities Laboratory Data at Discharge: WBC 6.90 K/uL (4.3-10.9) 08/18/22 01:32 Hgb 11.2 g/dL (13.6-17.9) L D 08/18/22 01:32 Hct 33.2 % (39.6-49.0) L 08/18/22 01:32 Plt Count 192 K/uL (152-406) 08/18/22 01:32 APTT 86.4 SECONDS (24.3-36.9) H 08/18/22 06:18 Sodium 137 mmol/L (136-145) 08/21/22 05:20 Potassium 4.1 mmol/L (3.5-5.1) 08/21/22 05:20 BUN 27 mg/dL (7-18) H 08/21/22 05:20 Creatinine 1.42 mg/dL (0.70-1.30) H 08/21/22 05:20 Glucose 90 mg/dL (74-106) 08/21/22 05:20 Phosphorus 2.6 mg/dL (2.5-4.9) 08/21/22 05:20 Magnesium 1.8 mg/dL (1.6-2.4) 08/21/22 05:20 Total Bilirubin 0.4 mg/dL (0.2-1.0) 08/20/22 04:51 AST 14 U/L (15-37) L 08/20/22 04:51 ALT 15 U/L (16-61) L 08/20/22 04:51 Alkaline Phosphatase 67 U/L (45-117) 08/20/22 04:51 Lipase 130 U/L (73-393) 08/17/22 13:30 Home Medications: Pravastatin Sodium 20 mg PO DAILY 08/17/22 Tamsulosin [Flomax*] 1 cap PO BEDTIME 08/17/22 Amiodarone HCl [Cordarone*] 200 mg PO BID 30 Days #60 tab 08/21/22 Apixaban [Eliquis] 5 mg PO BID 30 Days #60 tab 08/21/22 New Medications: Amiodarone HCl [Cordarone*] 200 mg PO BID 30 Days #60 tab Apixaban [Eliquis] 5 mg PO BID 30 Days #60 tab Physician Discharge Instructions: Patient presented with shortness of breath, chest discomfort, not feeling well. Found to have atrial fibrillation / flutter. D-dimer was elevated. Kidney function precluded obtaining CTA, so a VQ scan was performed and reported low probability of a pulmonary embolus. He received IV Amiodarone and anticoagulation with improvement of his heart rate. Cardiology was consulted, planned for CLAUDIA electrical cardioversion, however on CLAUDIA, noted a large thrombus in his left atrium. His eliquis was adjusted for his renal function, which improved, Cr < 1.5 and his oxygen was weaned down to room air. He was deemed stable for discharge on amiodarone 200mg twice daily and eliquis 5mg twice daily. Follow up with Cardiology in 1-2 weeks. Plan for repeat CLAUDIA in ~2 months to re-evaluate thrombus and possibility of electrical cardioversion if needed at that time. Blood pressure throughout hospitalization was low-normal. This combined with mild RORY, recommend stopping lisinopril-HCTZ for now. Monitor blood pressure at home. Further discussion with Cardiology on folllow up if/when appropriate to restart. Follow up: PCP within 1 week Cardiology in 1-2 weeks.PROBLEM: (list out Acute Problems for the Current visit) GOAL: Clear understanding of disease process INSTRUCTIONS: Follow up with cardiology in 1-2 weeks stop taking lisinopril-HCTZ monitor Blood Pressure at home Diet: AHA Activity: Ad beto DME DME: Date Ordered: Name of Company: [employer] Services Needed: None Name of Company: Date or Referral: IMMUNIZATION Influenza Vaccine Indicated: No Influenza Vaccine Given: Date Given: Pneumonia Vaccine Indicated: No Pneumonia Vaccine Given: Date Given: Diet: AHA Activity: Ad beto Followup: Joseph Nielson PA [Primary Care Provider] - Carson Bowman MD [ACTIVE - CAN ADMIT] - Time spent managing pt's care (in minutes): 45
== END 2022-08-21 09:30 | disposition home or self-care (01) | DRG 309 ==
LOC: ER 13:18 → ERHOLD 16:22 → 3RD-ICU 19:15 → OBSVTOIN 08-18 14:57
PROVIDERS: ADMIT Hospitalist; ATTEND Hospitalist
PROC: B24BZZ4 Ultrasonography of Heart with Aorta, Transesophageal (ICD-10-PCS; principal; 2022-08-20)
DX: I48.92 Unspecified atrial flutter (principal); N17.9 Acute kidney failure, unspecified; Z68.1 Body mass index [BMI] 19.9 or less, adult; E78.5 Hyperlipidemia, unspecified; J44.9 Chronic obstructive pulmonary disease, unspecified; I48.91 Unspecified atrial fibrillation; I12.9 Hypertensive chronic kidney disease with stage 1 through stage 4 chronic kidney disease, or unspecified chronic kidney disease; N18.9 Chronic kidney disease, unspecified; I51.3 Intracardiac thrombosis, not elsewhere classified; I25.10 Atherosclerotic heart disease of native coronary artery without angina pectoris; R63.6 Underweight; Z79.82 Long term (current) use of aspirin; Z79.01 Long term (current) use of anticoagulants; Z86.73 Personal history of transient ischemic attack (TIA), and cerebral infarction without residual deficits; Z79.899 Other long term (current) drug therapy; Z20.822 Contact with and (suspected) exposure to COVID-19
CPT/HCPCS: 36415; 71045; 78582; 80048; 80053; 81003; 82550; 82947; 83690; 83735; 83880; 84100; 84439; 84443; 84484; 85025; 85379; 85730; 87811; 93005; 93306; 93312; 96365; 96366; 99285; A9540; A9558; C9113; G0378; J0282; J0360; J0461; J1644; J2250; J3010; J3475; J7030; J7040; J7060

== ENCOUNTER → 2022-10-25 | Day surgery (SDC) | payer OTHER ==
[~2022-10-25] MED LIST: ATROPINE SULF 1 MG/10 ML SYR IV ONE; FLUMAZENIL 0.1 MG/ML (5 mL VIAL) IV ONE; LIDOCAINE VISCOUS 2% SOLN 15 ML UDC ONE; METOPROLOL TARTRATE 5 MG/5 ML INJ IV ONE; MIDAZOLAM HCL 0 ML ONE; MIDAZOLAM HCL 2 MG/2 ML INJ ONE
--- NOTE | 2022-10-25 12:24 | EKG ---
Test Date: 2022-10-25 Test Time: 07:45:13 Director Maternal Child: RENAN MEASUREMENT RESULTS: Intervals: Rate: 91 AK: 186 QRSD: 98 QT: 408 QTc: 501 Dorr: P: 65 AK: 186 QRS: 74 T: 42 INTERPRETIVE STATEMENTS: Normal sinus rhythm Prolonged QT Abnormal ECG Compared to ECG 08/17/2022 13:38:31 Prolonged QT interval now present Atrial flutter no longer present Electronically Signed On 10-25-22 12:23:05 CDT by Carson Bowman
== END ==
LOC: EKG 07:19
PROVIDERS: ATTEND Internal Medicine
DX: I48.0 Paroxysmal atrial fibrillation (principal); Z53.8 Procedure and treatment not carried out for other reasons; I51.3 Intracardiac thrombosis, not elsewhere classified; I10 Essential (primary) hypertension; E78.2 Mixed hyperlipidemia; R60.9 Edema, unspecified; Z79.01 Long term (current) use of anticoagulants; Z79.899 Other long term (current) drug therapy
CPT/HCPCS: 93005; J0461; J2250

== ENCOUNTER 2023-01-21 08:00 | Day surgery (SDC) | payer OTHER ==
[2023-01-21 07:38] LABS: Absolute Lymphocytes (CBC) 1.1 K/uL (0.7-4.9); Lymphocytes % 15.2 % (15.3-44.8); MCV 82.6 fL (80-100); RBC Red Blood Cell Count 3.87 M/uL (4.33-5.43)
[2023-01-21 07:41] LABS: Protime INR 1.85
[~2023-01-21 08:00] MED LIST changes: +HYDRALAZINE HCL 20 MG/ML VIAL ONE; -METOPROLOL TARTRATE 5 MG/5 ML INJ IV ONE; -MIDAZOLAM HCL 2 MG/2 ML INJ ONE; +NA CHLORIDE 0.9% 0 ML ONE; +PHENOL 1.4% ORAL SPRAY 180ML ONE
[2023-01-21 08:09] LABS: Potassium 3.8 mEq/L (3.5-5.1)
== END 2023-01-21 08:30 | disposition home or self-care (01) ==
LOC: CCL 08:00
PROVIDERS: ATTEND Internal Medicine
DX: I48.91 Unspecified atrial fibrillation (principal); Z53.8 Procedure and treatment not carried out for other reasons; I51.3 Intracardiac thrombosis, not elsewhere classified; I11.0 Hypertensive heart disease with heart failure; I50.9 Heart failure, unspecified; E78.2 Mixed hyperlipidemia; Z79.01 Long term (current) use of anticoagulants; Z79.899 Other long term (current) drug therapy
CPT/HCPCS: 36415; 80048; 85025; 85610; 85730; 93005; J0360; J0461; J2250; J7040

== ENCOUNTER → 2023-03-23 | Day surgery (SDC) | payer OTHER ==
[~2023-03-23] MED LIST changes: -HYDRALAZINE HCL 20 MG/ML VIAL ONE; -LIDOCAINE VISCOUS 2% SOLN 15 ML UDC ONE; -MIDAZOLAM HCL 0 ML ONE; +MIDAZOLAM HCL 2 MG/2 ML INJ ONE; -NA CHLORIDE 0.9% 0 ML ONE; +NA CHLORIDE 0.9% 500 ML ONE; -PHENOL 1.4% ORAL SPRAY 180ML ONE; +SIMPLE SYRUP 20 ML, LIDOCAINE 2% VISCOUS ORAL 20 ML MM ONE
--- NOTE | 2023-03-23 13:24 | TEE ---
TRANSESOPHAGEAL ECHOCARDIOGRAM REPORT CARDIOLOGY DEPARTMENT DATE OF STUDY: 03/23/2023 HEIGHT: 5'8" WEIGHT: 125 lbs DIAGNOSIS: LEFT ATRIAL MYXOMA HISTOPATH TECH COMMENTS: CLAUDIA CARDIAC HISTORY: CATHERIZATION: SURGERY: PROSTHETIC VALVE: PACEMAKER: 2 DIMENSIONAL ASSESSMENT: RIGHT ATRIUM: LEFT ATRIUM: RIGHT VENTRICLE: LEFT VENTRICLE: TRICUSPID VALVE: MITRAL VALVE: PULMONIC VALVE: AORTIC VALVE: PERICARDIAL EFFUSION: AORTIC ROOT: EJECTION FRACTION: 55-60% LEFT VENTRICULAR WALL MOTION: DOPPLER/COLOR FLOW: COMMENTS: 1. TRANSESOPHAGEAL ECHOCARDIOGRAM PROBE WAS INSERTED, NO DIFFICULTY 2. NORMAL LEFT VENTRICULAR EJECTION FRACTION 55-60% 3. MILD MITRAL REGUGITATION 4. MILD TRICUSPID REGURGITATION 5. NO LEFT ATRIAL TUMOR IS SEEN TECHNOLOGIST: YENI PAIGE
--- NOTE | 2023-03-23 18:24 | OP ---
Date of Procedure: 03/23/2023 Surgeon: PAULINE MUKHERJEE Procedure Performed: Transesophageal echocardiogram. Description Of Procedure: After risks, benefits, and alternatives were explained, the patient agreed to procedure and signed informed consent. Then after proper time-out, I numbed the back of the thro at using viscous and lidocaine and then I gave 5 mg of Versed and CLAUDIA probe was inserted without diff iculties and CLAUDIA was performed and then I removed CLAUDIA probe without any complications. /SHARI Voice ID: [id number] Report ID: [id number]
== END ==
LOC: EKG 07:45
PROVIDERS: ATTEND Internal Medicine
DX: I48.11 Longstanding persistent atrial fibrillation (principal); I11.0 Hypertensive heart disease with heart failure; I50.31 Acute diastolic (congestive) heart failure; Z79.01 Long term (current) use of anticoagulants
CPT/HCPCS: 93312; J0461; J2250; J7040

== ENCOUNTER 2023-06-27 18:46 | Observation (INO) | payer OTHER ==
--- OUTSIDE RECORDS SUMMARY | 2023-06-27 19:19 | XMS REPORT | Continuity of Care Document ---
:1945 Author Organization [facility] t Address [address] [place] [address] Care Team Providers Name Role Phone Silverio Estevez Attending Clinician Unavailable Payers Payer Name Policy Type Policy Number Effective Date Expiration Date Dalila arnold [facility] P [id number] Problems Condition Condition Condition Status Onset Resolution Last Treating Co mments Source Name Details Category Date Date Treatment Clinician Date BPH with BPH with Problem Active Commo n obstructio obstructio Sp gustavo n[facility]lower n[facility]lower [facility] Prostate Prostate Problem Active Commo n cancer cancer [facility] Allergies, Adverse Reactions, Alerts This patient has no known allergies or adverse reactions. Social History Social Habit Start Date Stop Date Quantity Comments Source time of call 2022-08-30 2022-08-30 08/30/2022 12:46 [facility] 12:46:48 12:46:48 PM Health Medications Ordered Filled Start Stop Current Ordering Indication Dosage Frequency Signature Comments Components Source Medication Medication Date Date Medication? Clinician (SIG) Name Name Albuterol Albuterol Yes Micheline 3 ml as C ommon Sulfate Sulfate Dk needed [facility] Pravastatin Pravastatin Yes Micheline 1 tablet Common Sodium Sodium Adona [facility] Lisinopril/ Lisinopril/ Yes Micheline 1 tablet Common Hctz Hctz Adona once daily Spiri [facility] Procedures This patient has no known procedures. Encounters Start End Encounter Admission Attending Care Care Encounter Source Date/Time Date/Time Type Type Clinicians Facility Department ID 2022-10-04 Outpatient [facility] [id number] [facility] 11:42:54 [id number] [facility] 2022-09-25 Outpatient [facility] [id number] [facility] 13:57:13 [id number] [facility] 2022-08-30 Outpatient [facility] [id number] [facility] 12:47:09 [id number] [facility] 2021-08-26 Outpatient Estevez, STLMLC STLMLC [id number] Common 11:14:54 Silverio [id number] [facility] 2019-12-25 2019-12-25 [id number] [facility] 14:58:00 14:58:00 t Specialty/U Sp gustavo Specialty rology - [facility] 2019-12-17 2019-12-17 [id number] [facility] 13:15:00 13:15:00 t Specialty/U Sp gustavo Specialty rology - [facility] 2019-12-10 2019-12-10 [id number] [facility] 12:14:00 12:14:00 t Specialty/U Sp gustavo Specialty rology - [facility] 2019-11-27 2019-11-27 [id number] [facility] 15:00:00 15:00:00 t Specialty/U Sp gustavo Specialty rology - [facility] 2019-11-21 2019-11-21 [id number] Common 11:32:00 11:32:00 t Specialty/U Sp gustavo Specialty rology - [facility] 2019-11-21 2019-11-21 [id number] Common 10:00:00 10:00:00 t Specialty/U Sp gustavo Specialty rology - [facility] 2019-10-19 2019-10-19 [id number] [facility] 10:00:00 10:00:00 t Specialty/U Sp gustavo Specialty rology - [facility] Results This patient has no known results.
[2023-06-27 20:48] LABS: Absolute Lymphocytes (CBC) 1.3 K/uL (0.7-4.9); Hematocrit 20.4 % (39.6-49.0); Lymphocytes % 26.7 % (15.3-44.8); MPV 7.7 fL (7.6-11.3); Platelets 197 thou/uL (152-406); RBC Red Blood Cell Count 2.83 M/uL (4.33-5.43)
--- NOTE | 2023-06-27 21:06 | RAD REPORT ---
EXAM DESCRIPTION: CT - [id number] - 06/27/2023 8:01 pm CLINICAL HISTORY: TRAUMA COMPARISON: No comparisons TECHNIQUE: Axial thin cut noncontrast CT images of the head were obtained. Axial thin cut noncontrast CT images of the cervical spine were obtained. Multiplanar reformatted images were generated and reviewed. All CT scans are performed using dose optimization technique as appropriate and may include automated exposure control or mA/KV adjustment according to patient size. FINDINGS: CT HEAD WITHOUT CONTRAST: No acute hemorrhage, hydrocephalus or extra-axial collection is identified. 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 Patchy periventricular hypodensities as well as focus o f right basal ganglia near CSF density, which may relate to a remote infarct. No areas of brain edema or midline shift. The paranasal sinuses and mastoids are clear.The calvarium is intact. CT CERVICAL SPINE WITHOUT CONTRAST: No fracture or subluxation.No prevertebral soft tissues swelling is identified. IMPRESSION: No acute traumatic intracranial or cervical spine findings. Chronic findings as above.
[2023-06-27 21:07] LABS: Albumin 2.7 g/dL (3.4-5.0); Bilirubin Direct 0.2 mg/dL (0-0.2); Bilirubin Indirect, Calculated 0.2 mg/dL (0.2-0.8); Bilirubin Total 0.4 mg/dL (0.2-1.0); Magnesium 2.4 mg/dL (1.6-2.4); Potassium 4.3 mEq/L (3.5-5.1); Protein, Total 7.1 g/dL (6.4-8.2); Troponin High Sensitivity 19.9 pg/mL (<58.9)
--- NOTE | 2023-06-27 21:19 | RAD REPORT ---
EXAM DESCRIPTION: RADChest Single View06/27/2023 8:06 pm CLINICAL HISTORY: syncope COMPARISON: Chest Single View dated 08/17/2022; Chest Pa And Lat (2 Views) dated 04/28/2022; Chest Sin gle View dated 10/30/2017; Chest Pa And Lat (2 Views) dated 07/05/2017 TECHNIQUE: Portable AP view of the chest. FINDINGS: No pneumothorax. Layering left pleural effusion with underlying airspace opacification. Tr achea is midline. The cardiomediastinal contours are unremarkable. IMPRESSION: Layering moderate left pleural effusion with underlying airspace opacification. Pneumoni a should be considered.
--- NOTE | 2023-06-27 21:33 | EDPHYS ---
Physician Documentation [facility] Name: Gonzalez Stein Jr Age: 78 yrs Sex: Male : 1945 Arrival Date: 06/27/2023 Time: 18:46 Bed 12 Private MD: ED Physician Christopher Echevarria HPI: 06/27 20:07 This 78 yrs old Black Male presents to ER via EMS with complaints of Syncope. rt 20:07 Patient presents to the ED with a syncopal events. Earlier today, the patient did have rt a trip and fall, hitting his head without loss of consciousness and states that he completely injured his head at that time. Patient states that subsequently later in the day, he became short of breath feeling his COPD was acting up and states that he felt he got overheated and briefly became near syncopal but cannot completely lose consciousness. Patient states this has completely resolved, is no symptoms currently. Symptoms are moderate in severity, no other aggravating or alleviating factors.. Historical: - Allergies: 19:01 No Known Allergies; me1 - PMHx: 19:01 COPD; Emphysema; TIA; Hypertension; High Cholesterol; me1 - PSHx: 19:01 hernia repair- 1965; me1 - Immunization history:: Adult Immunizations up to date. - Social history:: Smoking status: Patient denies any tobacco usage or history of. - Family history:: not pertinent. ROS: 20:07 Constitutional: Negative for fever, chills, and weight loss, Cardiovascular: Negative rt for chest pain, palpitations, and edema, Respiratory: Negative for shortness of breath, cough, wheezing, and pleuritic chest pain, Abdomen/GI: Negative for abdominal pain, nausea, vomiting, diarrhea, and constipation, MS/Extremity: Negative for injury and deformity, Skin: Negative for injury, rash, and discoloration, Psych: Negative for depression, anxiety, suicide ideation, homicidal ideation, and hallucinations, 20:07 Neuro: Positive for near syncope, Negative for syncope, Exam: 20:07 Constitutional: This is a well developed, well nourished patient who is awake, alert, rt and in no acute distress. Head/Face: Normocephalic, atraumatic. Chest/axilla: Normal chest wall appearance and motion. Nontender with no deformity. No lesions are appreciated. Cardiovascular: Regular rate and rhythm with a normal S1 and S2. No gallops, murmurs, or rubs. Normal PMI, no JVD. No pulse deficits. Respiratory: Lungs have equal breath sounds bilaterally, clear to auscultation and percussion. No rales, rhonchi or wheezes noted. No increased work of breathing, no retractions or nasal flaring. Abdomen/GI: Soft, non-tender, with normal bowel sounds. No distension or tympany. No guarding or rebound. No evidence of tenderness throughout. Skin: Warm, dry with normal turgor. Normal color with no rashes, no lesions, and no evidence of cellulitis. MS/ Extremity: Pulses equal, no cyanosis. Neurovascular intact. Full, normal range of motion. Neuro: Awake and alert, GCS 15, oriented to person, place, time, and situation. Cranial nerves II-XII grossly intact. Motor strength 5/5 in all extremities. Sensory grossly intact. Cerebellar exam normal. Normal gait. Psych: Awake, alert, with orientation to person, place and time. Behavior, mood, and affect are within normal limits. 20:07 ECG was reviewed by the Attending Physician. Vital Signs: 18:57 BP 118 / 62; Pulse 50; Resp 20; Pulse Ox 100% on R/A; Weight 52.16 kg; Height 5 ft. 8 me1 in. ; Pain 0/10; 19:01 BP 118 / 62; Pulse 50; Resp 20; Pulse Ox 100% on R/A; me1 20:00 BP 124 / 64; Pulse 101; Resp 18; Pulse Ox 100% on R/A; me1 21:00 BP 118 / 61; Pulse 98; Resp 19; Pulse Ox 98% on R/A; me1 22:16 BP 135 / 63; Pulse 103; Resp 20; Pulse Ox 100% on R/A; me1 23:08 BP 116 / 62; Pulse 77; Resp 18; Pulse Ox 97% on R/A; me1 06/28 00:00 BP 111 / 59; Pulse 55; Resp 18 S; Pulse Ox 94% on R/A; as6 02:19 BP 142 / 64; Pulse 53; Resp 18 S; Pulse Ox 100% on R/A; as6 04:00 BP 154 / 66; Pulse 53; Resp 16 S; Temp 97.1(TE); Pulse Ox 98% on R/A; as6 06:00 BP 159 / 89; Pulse 54; Resp 16 S; Temp 97.3(TE); Pulse Ox 100% on R/A; as6 06/27 18:57 Body Mass Index 17.49 (52.16 kg, 172.72 cm) me1 06/27 18:57 Pain Scale: Adult me1 MDM: 06/27 19:12 Patient medically screened. rt 21:32 Differential Diagnosis Anemia, syncope, dysrhythmia. Data reviewed: vital signs, nurses rt notes, lab test result(s), EKG, radiologic studies. Consideration of Admission/Observation Patient was admitted/placed on observation. Management of patient was discussed with the following: Hospitalist: Agrees to admit. I considered the following discharge prescriptions or medication management in the emergency department Medications were administered in the Emergency Department. See MAR. Independent interpretation of the following test(s) in the Emergency Department CT Scan: My interpretation is No hemorrhage seen on interpretation of CT scan images. Care significantly affected by the following chronic conditions: Chronic Obstructive Pulmonary Disease. Counseling: I had a detailed discussion with the patient and/or guardian regarding the historical points, exam findings, and any diagnostic results supporting the discharge/admit diagnosis, lab results, radiology results, the need for further work-up and treatment in the hospital. 06/27 21:16 Order name: Type And Screen rt 06/27 19:22 Order name: Basic Metabolic Panel; Complete Time: 21:08 rt 06/27 19:22 Order name: CBC with Diff; Complete Time: 21:08 rt 06/27 19:22 Order name: LFT's; Complete Time: 21:08 rt 06/27 19:22 Order name: Magnesium; Complete Time: 21:08 rt 06/27 19:22 Order name: Troponin HS; Complete Time: 21:08 rt 06/27 21:30 Order name: Packed RBC Leukored EDMS 06/27 21:38 Order name: Transferrin Sat/Iron Binding EDMI 06/27 21:38 Order name: Ferritin EDMS 06/27 21:45 Order name: Basic Metabolic Panel EDMS 06/27 21:45 Order name: Basic Metabolic Panel EDMS 06/27 21:45 Order name: CBC with Automated Diff EDMS 06/27 21:45 Order name: CBC with Automated Diff EDMS 06/27 23:08 Order name: ABO/RH no charge EDMS 06/28 04:44 Order name: Manual Differential EDMS 06/27 19:22 Order name: XRAY Chest (1 view); Complete Time: 21:22 rt 06/27 19:22 Order name: CT Head C Spine; Complete Time: 21:08 rt 06/27 19:22 Order name: EKG; Complete Time: 19:23 rt 06/27 19:22 Order name: Cardiac monitoring; Complete Time: 20:14 rt 06/27 19:22 Order name: EKG - Nurse/Tech; Complete Time: 19:55 rt 06/27 19:22 Order name: IV Saline Lock; Complete Time: 20:14 rt 06/27 19:22 Order name: Labs collected and sent; Complete Time: 20:14 rt 06/27 19:22 Order name: O2 Per Protocol; Complete Time: 20:14 rt 06/27 19:22 Order name: O2 Sat Monitoring; Complete Time: 20:14 rt EC:07 Rate is 47 beats/min. Rhythm is regular, Sinus bradycardia with No ectopy. QRS Ducor is rt Normal. AR interval is normal. QRS interval is normal. QT interval is normal. No Q waves. Administered Medications: 22:12 Drug: Rocephin IV 2 grams IV at calculated rate once; Given slow IV push per pharmarcy me1 instructions Route: IV; Rate: calculated rate; Site: right forearm; 22:12 Follow up: IV Status: Completed infusion me1 22:12 Drug: AZITHromycin IVPB 500 mg IVPB once over 1 hrs; (mix in 250 mL NS) Route: IVPB; me1 Infused Over: 1 hrs; Site: right forearm; Disposition Summary: 06/27/23 21:32 Hospitalization Ordered Notes: Hospitalization Status: Observation rt Provider: Victor Manuel Zavaleta rt Condition: Stable rt Problem: new rt Symptoms: have improved rt Bed/Room Type: Standard rt Location: Telemetry/MedSurg (observation)(06/28/23 07:22) bd Room Assignment: 418(06/28/23 08:31) bd Diagnosis - Syncope rt - Symptomatic anemia rt Forms: - Medication Reconciliation Form rt - SBAR form rt - Leadership Thank You Letter rt Critical care time excluding procedures: 21:32 Critical care time: Bedside Care: 30 minutes, Consultation: 5 minutes. Total time: 35 rt minutes Signatures: Dispatcher [employer] EDAdalgisa Arevalo Kimberly, RN RN Christopher Nicholson MD MD rt Dina Drake RN RN me1 Corrections: (The following items were deleted from the chart) 06/28 03:49 06/27 21:32 Telemetry/MedSurg (observation) health system 06/28 03:49 06/27 21:32 health system 06/28 07:22 03:49 [facility] ER HOLD bd 07:22 03:49 ERHOLD- bd 08:31 07:22 [facility] bd
--- NOTE | 2023-06-27 21:33 | ER ---
Nurse's Notes [facility] Name: Gonzalez Stein Jr Age: 78 yrs Sex: Male : 1945 Arrival Date: 06/27/2023 Time: 18:46 Bed 12 Private MD: Diagnosis: Syncope;Symptomatic anemia Presentation: 06/27 18:57 Chief complaint: EMS states: toned out for syncopal episode. Family member was me1 vacuuming and patient became sob. Family member turned around and patient was on the floor and difficult to arouse. Per EMS, on arrival patient was A\T\Ox4, o2 sat went from 95% to 90 on room air. Rec'd A\T\A neb tx and sat increased to 97%. 20 gauge to Left wrist. Coronavirus screen: Vaccine status: Patient reports being unvaccinated. Ebola Screen: No symptoms or risks identified at this time. Initial Sepsis Screen: Does the patient meet any 2 criteria? No. Patient's initial sepsis screen is negative. Does the patient have a suspected source of infection? No. Patient's initial sepsis screen is negative. Risk Assessment: Do you want to hurt yourself or someone else? Patient reports no desire to harm self or others. Onset of symptoms was June 27, 2023. 18:57 Method Of Arrival: EMS: [facility] 18:57 Acuity: SHASHANK 3 me1 Triage Assessment: 19:01 General: Appears comfortable, well groomed, well developed, well nourished, Behavior is me1 calm, cooperative, appropriate for age, Reports when family member was vacuuming he became SOB. Doesn't recall passing out but came to on the floor. Denies pain/injury from falling during syncopal episode. Pain: Denies pain. Neuro: Level of Consciousness is awake, alert, obeys commands, Oriented to person, place, time, situation, Appropriate for age. Cardiovascular: Capillary refill < 3 seconds Patient's skin is warm and dry. Respiratory: Airway is patent Respiratory effort is even, unlabored, Respiratory pattern is regular, symmetrical. Historical: - Allergies: 19:01 No Known Allergies; me1 - PMHx: 19:01 COPD; Emphysema; TIA; Hypertension; High Cholesterol; me1 - PSHx: 19: hernia repair- 1965; me1 - Immunization history:: Adult Immunizations up to date. - Social history:: Smoking status: Patient denies any tobacco usage or history of. - Family history:: not pertinent. Screenin:04 [facility] ED Fall Risk Assessment (Adult) History of falling in the last 3 months, me1 including since admission Yes- physiologic fall (2 pts) Confusion or Disorientation No (0 pts) Intoxicated or Sedated No (0 pts) Impaired Gait No (0 pts) Mobility Assist Device Used No (0 pt) Altered Elimination No (0 pt) Score/Fall Risk Level 0 - 2 = Low Risk Oriented to surroundings, Provided non-skid footwear, Hourly rounding (assess needs \T\ fall precautionary measures) done. Abuse screen: Denies threats or abuse. Nutritional screening: No deficits noted. Tuberculosis screening: No symptoms or risk factors identified. Assessment: 19:04 General: See triage assessment. . me1 23:53 General: [phone] Danica . as6 06/28 02:55 General: first unit of blood started. as6 05:25 General: first unit of blood complete. as6 06:20 General: second unit of blood started . as6 Vital Signs: 06/27 18:57 BP 118 / 62; Pulse 50; Resp 20; Pulse Ox 100% on R/A; Weight 52.16 kg; Height 5 ft. 8 me1 in. ; Pain 0/10; 19:01 BP 118 / 62; Pulse 50; Resp 20; Pulse Ox 100% on R/A; me1 20:00 BP 124 / 64; Pulse 101; Resp 18; Pulse Ox 100% on R/A; me1 21:00 BP 118 / 61; Pulse 98; Resp 19; Pulse Ox 98% on R/A; me1 22:16 BP 135 / 63; Pulse 103; Resp 20; Pulse Ox 100% on R/A; me1 23:08 BP 116 / 62; Pulse 77; Resp 18; Pulse Ox 97% on R/A; me1 06/28 00:00 BP 111 / 59; Pulse 55; Resp 18 S; Pulse Ox 94% on R/A; as6 02:19 BP 142 / 64; Pulse 53; Resp 18 S; Pulse Ox 100% on R/A; as6 04:00 BP 154 / 66; Pulse 53; Resp 16 S; Temp 97.1(TE); Pulse Ox 98% on R/A; as6 06:00 BP 159 / 89; Pulse 54; Resp 16 S; Temp 97.3(TE); Pulse Ox 100% on R/A; as6 06/27 18:57 Body Mass Index 17.49 (52.16 kg, 172.72 cm) me1 06/27 18:57 Pain Scale: Adult az1 ED Course: 06/27 18:51 Patient arrived in ED. bd 18:57 Dina Drake, RN is Primary Nurse. me1 19:01 Triage completed. me1 19:01 Splint/sling/ice applied as appropriate. Arm band placed on Patient placed in an exam az1 room. 19:04 Patient has correct armband on for positive identification. Bed in low position. Call az1 light in reach. Side rails up X 1. Provided Education on: POC. Verbalized understanding. . 19:04 No provider procedures requiring assistance completed. Maintain EMS IV. Dressing me1 intact. Good blood return noted. Site clean \T\ dry. Gauge \T\ site: 20 gauge left wrist. . 19:05 Christopher Echevarria MD is Attending Physician. rt 19:59 CT Head C Spine In Process Unspecified. EDMS 20:08 XRAY Chest (1 view) In Process Unspecified. EDMS 21:31 Victor Manuel Zavaleta MD is Hospitalizing Provider. rt 21:38 Inserted saline lock: 20 gauge in right wrist, using aseptic technique. kmf 22:19 Type And Screen Sent. az1 06/28 05:48 Patient admitted, IV remains in place. as6 Administered Medications: 06/27 22:12 Drug: Rocephin IV 2 grams IV at calculated rate once; Given slow IV push per pharmarcy me1 instructions Route: IV; Rate: calculated rate; Site: right forearm; 22:12 Follow up: IV Status: Completed infusion me1 22:12 Drug: AZITHromycin IVPB 500 mg IVPB once over 1 hrs; (mix in 250 mL NS) Route: IVPB; me1 Infused Over: 1 hrs; Site: right forearm; Medication: 19:04 VIS not applicable for this client. az1 Outcome: 21:32 Decision to Hospitalize by Provider. rt 06/28 05:48 Admitted to ER Hold. Please see [employer] for further documentation. as6 Condition: stable Instructed on the need for admit, 08:57 Patient left the ED. iw Signatures: Dispatcher [employer] EDAdalgisa Arevalo Irene, RN RN iw Maximo Avalos RN RN as6 Christopher Echevarria MD MD rt Dina Drake RN RN [facility] Kym Braun [facility]
[2023-06-27] MEDS ORDERED: ACETAMINOPHEN 325 MG TABLET PO PRN (21:36)
[2023-06-27] MEDS ORDERED: ONDANSETRON 4 MG/2 ML VIAL IV PRN (21:36)
[2023-06-27] MEDS ORDERED: MAGNESIUM HYDROXIDE 8% 30 ML PO PRN (21:36)
[2023-06-27] MEDS ORDERED: SODIUM CHLORIDE 0.9% 10ML INJ IV PRN (21:42)
--- NOTE | 2023-06-27 21:44 | P.HP ---
Certification for Inpatient Patient admitted to: Observation With expected LOS: <2 Midnights Practitioner: I am a practitioner with admitting privileges, knowledge of patient current condition, hospital course, and medical plan of care. Services: Services provided to patient in accordance with Admission requirements found in Title 42 Section 412.3 of the Code of Federal Regulations Patient History Date of Service: 06/28/23 Reason for admission: Severe anemia, suspected GI bleed. History of Present Illness: 78-year-old male patient with a medical history significant for hyperlipidemia, hypertension, benign prostatic hypertrophy who also has encounter for anticoagulation use with Laurencequalireza who came to the ED with complaint of feeling dizzy and having a brief syncopal episode. He was worked up and found to have severe anemia with hemoglobin of 6.1 so he was admitted for inpatient care. He has elevated creatinine of 2. There was concerns for possible GI bleed he was started on blood transfusion and was asked to be evaluated by manager of information. Allergies No Known Allergies Allergy (Unverified 07/06/17 01:18) Home Medications: Pravastatin Sodium 20 mg PO DAILY 08/17/22 Tamsulosin [Flomax*] 1 cap PO BEDTIME 08/17/22 Amiodarone HCl [Cordarone*] 200 mg PO BID 30 Days #60 tab 08/21/22 Apixaban [Eliquis] 5 mg PO BID 30 Days #60 tab 08/21/22 - Past Medical/Surgical History Diabetic: No -: COPD -: Hypertension -: HLD -: TIA -: hernia repair - Social History Alcohol use: No CD- Drugs: No Caffeine use: Yes Review of Systems General: Weakness, Malaise Eyes: Unremarkable ENT: Unremarkable Respiratory: Unremarkable Cardiovascular: Unremarkable Gastrointestinal: Unremarkable Genitourinary: Unremarkable Musculoskeletal: Unremarkable Integumentary: Unremarkable Neurological: Unremarkable Physical Examination - Studies Laboratory Data (last 24 hrs) 06/27/23 06/27/23 20:25 20:25 WBC 4.80 Hgb 6.4 L Hct 20.4 L Plt Count 197 Sodium 135 L Potassium 4.3 BUN 32 H Creatinine 2.19 H Glucose 107 H Magnesium 2.4 Total Bilirubin 0.4 AST 17 ALT 15 L Alkaline Phosphatase 82 Assessment and Plan - Plan GI bleed: Suspected based on clinical finding. Patient has severe anemia. Will have manager of information evaluate. Will keep on pantoprazole therapy. Severe anemia: Hemoglobin was 6.1 on initial evaluation in the ED. 2 units of packed red cells to be transfused. Iron studies done, iron saturation was less than 10%. Ferritin is also less than 20. Will start Ferrlecit for management of severe iron deficiency anemia. Hoop Machine Operator to evaluate for possible GI source. History of hypertension: We will monitor vital signs per unit protocol and continue antihypertensive medications. Acute kidney injury: Creatinine is elevated at 2.0. This is deemed secondary to GI bleed/severe anemia episode. Will hydrate with isotonic fluid and monitor trend of kidney function closely. Will avoid nephrotoxins. Bedbug: Patient has visualized bedbugs. Will evaluate and treat. Isolation to be continued. Prophylaxis: SCDs for DVT prophylaxis in view of severe anemia. CODE STATUS: Full code. Disposition: We will treat his severe anemia and workup for possible GI bleed and discharge him once is deemed medically stable. - Advance Directives Does patient have a Living Will: No Does patient have a Durable POA for Healthcare: No
[2023-06-27] MEDS ORDERED: CEFTRIAXONE 2000 MG/VIAL ONE (22:14)
[2023-06-27] MEDS ORDERED: AZITHROMYCIN 500 MG INJ IVPB ONE (22:14)
[2023-06-27] MEDS ORDERED: NA CHLORIDE 0.9% 250 ML ONE (22:14)
[2023-06-27 22:32] LABS: Ferritin 11.3 ng/mL (26-388)
[2023-06-28] MEDS ORDERED: NA CHLORIDE 0.9% 250 ML ONE ×2 (01:21→01:38)
[2023-06-28 03:20] LABS: Potassium 4.2 mEq/L (3.5-5.1)
[2023-06-28 03:24] LABS: Hematocrit 19.8 % (39.6-49.0); MCV 72.7 fL (80-100); Platelets 209 thou/uL (152-406); RBC Red Blood Cell Count 2.72 M/uL (4.33-5.43)
[2023-06-28 04:43] LABS: Blood Morphology Comment NOTED (NOT SEEN); Burr Cells 1+; Hypochromasia 1+; Platelet Estimate ADEQ
[2023-06-28] MEDS ORDERED: ALBUTEROL INHALER 60 PUFF/8 GM IH PRN (06:51)
--- NOTE | 2023-06-28 06:57 | P.PN ---
Subjective Date of Service: 06/28/23 Patient clinically doing well. Patient states he wants his albuterol inhaler. Denies any active bleeding that he has noticed. He states that he has been on the Eliquis for his thrombus that has cleared up. He also states that he been feeling really weak and gets really short of breath quickly. Explained to him that him being anemic most likely results in this. Patient overall is hemodynamically stable and he is cleared to go upstairs to the general medical floor. Patient follows up with SERAFIN Nielson. His GI doctor is in the [place]. Will consult gastroenterology on-call, Dr. Vasquez. Review of Systems 10-point ROS is otherwise unremarkable Physical Examination - Vital Signs Temperature: 98 F (reviewed vitals) - Physical Exam General: Alert, In no apparent distress, Oriented x3 HEENT: Other (Conjunctiva pallor) Respiratory: Clear to auscultation bilaterally, Normal air movement Cardiovascular: Regular rate/rhythm, Normal S1 S2 Gastrointestinal: Normal bowel sounds, No tenderness Musculoskeletal: No clubbing, No swelling, No tenderness Integumentary: No rashes Neurological: Sensation intact, Cranial nerves 3-12 intact - Studies Laboratory Data (last 24 hrs) 06/27/23 06/27/23 20:25 20:25 WBC 4.80 Hgb 6.4 L Hct 20.4 L Plt Count 197 Sodium 135 L Potassium 4.3 BUN 32 H Creatinine 2.19 H Glucose 107 H Magnesium 2.4 Total Bilirubin 0.4 AST 17 ALT 15 L Alkaline Phosphatase 82 Medications List Reviewed: Yes Assessment & Plan - Problems (Diagnosis) (1) Iron deficiency anemia Current Visit: Yes Status: Acute (2) GI bleeding Current Visit: Yes Status: Acute (3) Atrial fibrillation Current Visit: Yes Status: Acute (4) Left atrial thrombus Current Visit: Yes Status: Acute (5) COPD (chronic obstructive pulmonary disease) Current Visit: Yes Status: Acute - Plan Plan: 1. Patient with iron deficiency anemia most likely from GI bleeding exacerbated secondary to anticoagulant. Plan is to continue with PPI and IV fluids. Patient echocardiogram a few months ago was within normal limits. Left atrial thrombus had resolved. Gastroenterology, Dr. Vasquez has been consulted. Will also consult cardiology Dr. Bowman get his input regarding anticoagulant. As long as patient is H&H remained stable patient may not need emergent interventi on. However, if his H&H continues to go down after blood transfusion then we may need to do endoscopy prior to discharging. At this time, patient is hemodynamically stable and he is admitted for inpatient hospitalization to the telemetry floor. Will continue to monitor his rate. 2. Atrial fibrillation; continue with amiodarone but holding anticoagulation 3. History of COPD; continue with inhaler therapy as needed 4. History of BPH; continue with Flomax 5. GI and DVT prophylaxis Discharge Plan: Home Plan to discharge in: Greater than 2 days - Advance Directives Does patient have a Living Will: No Does patient have a Durable POA for Healthcare: No - Code Status/Comfort Care Code Status Assessed: Yes Code Status: Full Code Critical Care: No Time Spent Managing PTS Care (In Minutes): 35
[2023-06-28] MEDS: SOD FERRIC GLUC COMPLX/SUCROSE 125 MG in NA CHLORIDE 0.9% 100 ML IV SCH (09:00)
[2023-06-28] MEDS: AMIODARONE HCL 200 MG TAB PO SCH ×2 (09:00→20:56)
[2023-06-28] MEDS: PANTOPRAZOLE 40 MG INJ IVP SCH ×2 (10:00→20:56)
[2023-06-28] MEDS: NA CHLORIDE 0.9% 1,000 ML IV SCH ×2 (10:41→20:58)
[2023-06-28] MEDS ORDERED: ALBUTEROL 2.5 MG/3 ML NEB SOL NEB PRN (13:13)
--- NOTE | 2023-06-28 13:43 | CON ---
Date of Consultation: 06/28/2023 Reason For Consultation: Atrial fibrillation. History Of Present Illness: This is a 78-year-old male, history of dyslipidemia, hypertension, curre ntly with history of atrial fibrillation, on Eliquis for anticoagulation, presented feeling dizzy and near syncopal. Found to have severe anemia with hemoglobin of 6.1 and an acute renal failure. Hank es having any chest pain or shortness of breath. Past Medical History: As outlined above in the HPI. Medications: Refer to reconciliation sheet for detailed list. Allergies: NO KNOWN DRUG ALLERGIES. Family History: No premature coronary artery disease or cancer. Social History: Does not smoke or drink. Does not use any drugs. Review of Systems: All systems reviewed. They were negative except for mentioned in HPI. Physical Examination: Vital Signs: Reviewed. Head and Neck: Pupils are equal, reactive to light. Intact eye movements. No JVD. No cervical lym phadenopathy. Neck: Supple. Thyroid is not enlarged. Lungs: Clear to auscultation bilaterally. No rhonchi, rales, or crackles. No accessory muscle use. Heart: Irregularly irregular. No extra sounds. Abdomen: Soft, nontender. Bowel sounds positive. No organomegaly. No masses or hernia. No rigidi ty or rebound. Extremities: No clubbing, cyanosis. Intact pulses. Skin: No rash. Neurologic: Alert, awake, oriented x3. No acute focal deficits appreciated. Investigations: Hemoglobin 6.1. BUN is 31, creatinine 2.06. Assessment And Recommendations: 1.Atrial fibrillation, rate is controlled. Agree with amiodarone and metoprolol, but for stroke pre vention, Eliquis cannot be used due to severe anemia. Recommend outpatient left atrial appendage annabelle sure for him. 2.Severe anemia. Recommend GI workup for that. 3.Dyslipidemia. Continue statin. SR/MODL Voice ID: [id number] Report ID: [id number]
[2023-06-28 18:37] VITALS: O2SAT 100
[2023-06-28] MEDS ORDERED: ATORVASTATIN 10 MG TAB PO SCH (21:00)
[2023-06-28] MEDS ORDERED: TAMSULOSIN 0.4 MG SR CAP PO SCH (21:00)
[2023-06-29] MEDS: PANTOPRAZOLE 40 MG INJ IVP SCH (08:52)
[2023-06-29] MEDS: AMIODARONE HCL 200 MG TAB PO SCH (08:52)
[2023-06-29] MEDS: SOD FERRIC GLUC COMPLX/SUCROSE 125 MG in NA CHLORIDE 0.9% 100 ML IV SCH (08:52)
[2023-06-29] MEDS: NA CHLORIDE 0.9% 1,000 ML IV SCH (08:55)
[2023-06-29 14:00] LABS: Absolute Lymphocytes (CBC) 0.7 K/uL (0.7-4.9); Hematocrit 27.4 % (39.6-49.0); Lymphocytes % 12.6 % (15.3-44.8); MCV 77.2 fL (80-100); MPV 7.8 fL (7.6-11.3); Platelets 178 thou/uL (152-406); RBC Red Blood Cell Count 3.55 M/uL (4.33-5.43)
[2023-06-29 14:18] VITALS: BP 111/56; TEMP 97.1
[2023-06-29 14:53] LABS: Blood Morphology Comment NOT SEEN (NOT SEEN); Platelet Estimate ADEQ; White Blood Cell Scan OK (OK)
--- NOTE | 2023-06-30 15:25 | EKG ---
Test Date: 2023-06-27 Test Time: 19:49:44 Financial Secretary: ANTWON MEASUREMENT RESULTS: Intervals: Rate: 47 MN: 264 QRSD: 86 QT: 550 QTc: 486 [place]: P: 39 MN: 264 QRS: 68 T: 20 INTERPRETIVE STATEMENTS: Marked sinus bradycardia with 1st degree AV block Nonspecific ST abnormality Prolonged QT Abnormal ECG Compared to ECG 10/25/2022 07:45:13 First degree AV block now present ST (T wave) deviation now present Sinus rhythm no longer present Electronically Signed On 06-30-23 15:15:04 REST ROOM MAID by Carson Bowman
== END 2023-06-29 15:16 | disposition home or self-care (01) ==
LOC: ER 18:46 → ERHOLD 21:36 → 4TH 06-28 07:34
PROVIDERS: ADMIT Internal Medicine Nephrology; ATTEND Hospitalist
PROC: 30233N1 Transfusion of Nonautologous Red Blood Cells into Peripheral Vein, Percutaneous Approach (ICD-10-PCS; principal; 2023-06-28)
DX: D50.9 Iron deficiency anemia, unspecified (principal); E78.5 Hyperlipidemia, unspecified; I10 Essential (primary) hypertension; N40.0 Benign prostatic hyperplasia without lower urinary tract symptoms; N17.9 Acute kidney failure, unspecified; K92.2 Gastrointestinal hemorrhage, unspecified; I51.3 Intracardiac thrombosis, not elsewhere classified; I48.11 Longstanding persistent atrial fibrillation; J44.9 Chronic obstructive pulmonary disease, unspecified; Z79.01 Long term (current) use of anticoagulants
CPT/HCPCS: 93005; 85025 ×3; 80048 ×2; 36415 ×2; 86900; 83735; 86850; 86901; 80076; 86920 ×2; 85018; 84484; 82728; 83540; 84466; 70450; 72125; 71045; 94640; 96375; 96374; 99285; 36430; J2916 ×2; J7613; C9113 ×3; J0696; G0378 ×3; P9016 ×2; J7050 ×3; J7030 ×2

== ENCOUNTER 2023-11-17 11:59 | Emergency (ER) | payer OTHER ==
--- OUTSIDE RECORDS SUMMARY | 2023-11-17 12:02 | XMS REPORT | Continuity of Care Document ---
Author Name Unknown Address [address] 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 [id number] Problems Condition Name Condition Details Condition Category Status Onset Date Resolution Date Last Treatment Date Treating Clinician Comments Source BPH with obstructio n/lower urinary tract symptoms BPH with obstructio n/lower urinary tract symptoms Problem Active [facility] Prostate cancer Prostate cancer Problem Active [facility] Social History Social Habit Start Date Stop Date Quantity Comments Source time of call 2022-08-30 12:46:48 2022-08-30 12:46:48 08/30/2022 12:46 PM [facility] Medications Ordered Medication Name Filled Medication Name Start Date Stop Date Current Medication? Ordering Clinician Indication Dosage Frequency Signature (SIG) Comments Components Source Albuterol Sulfate Albuterol Sulfate Yes Micheline [place] 3 ml as needed [facility] Pravastatin Sodium Pravastatin Sodium Yes Micheline [place] 1 tablet [facility] Lisinopril/ Hctz Lisinopril/ Hctz Yes Micheline Dk 1 tablet once daily [facility] Encounters Start Date/Time End Date/Time Encounter Type Admission Type Attending Clinicians Care Facility Care Department Encounter ID Source 2022-10-04 11:42:54 Outpatient [facility] [id number] [facility] 2022-09-25 13:57:13 Outpatient [facility] [id number] [facility] 2022-08-30 12:47:09 Outpatient [facility] [id number] [facility] 2021-08-26 11:14:[id number] [facility] 2019-12-25 14:58:00 2019-12-25 14:58:00 [facility] [id number] [facility] 2019-12-17 13:15:00 2019-12-17 13:15:00 [facility] [id number] [facility] 2019-12-10 12:14:00 2019-12-10 12:14:00 [facility] [id number] [facility] 2019-11-27 15:00:00 2019-11-27 15:00:00 [facility] [id number] [facility] 2019-11-21 11:32:00 2019-11-21 11:32:00 [facility] [id number] [facility] 2019-11-21 10:00:00 2019-11-21 10:00:00 [facility] [id number] [facility] 2019-10-19 10:00:00 2019-10-19 10:00:00 [facility] [id number] [facility]
[2023-11-17 14:32] LABS: PT Prothrombin Time 24.1 SECONDS (9.5-12.5); Protime INR 2.24
[2023-11-17 14:39] LABS: Albumin 3.2 g/dL (3.4-5.0); Albumin/Globulin Ratio 0.7 (1.1-1.8); Anion Gap 10.1 mEq/L (5.0-15.0); Bilirubin Direct 0.3 mg/dL (0-0.2); Bilirubin Indirect, Calculated 0.4 mg/dL (0.2-0.8); Bilirubin Total 0.7 mg/dL (0.2-1.0); Globulin 4.3 g/dL (2.3-3.5); Potassium 4.1 mEq/L (3.5-5.1); Protein, Total 7.5 g/dL (6.4-8.2)
[2023-11-17 15:14] LABS: Hematocrit 21.3 % (39.6-49.0); Hemoglobin 6.6 g/dL (13.6-17.9); MCH 21.4 pg (27.0-35.0); MCHC 30.8 g/dL (32.0-36.0); MCV 69.6 fL (80-100); Platelets 176 thou/uL (152-406); RBC Red Blood Cell Count 3.06 M/uL (4.33-5.43); Red Cell Distribution Width 19.1 % (12.1-15.2)
[2023-11-17 15:47] LABS: Absolute Basophils 0.1 K/uL (0-0.5); Absolute Eosinophils 0.2 K/uL (0-0.5); Absolute Lymphocytes (CBC) 0.5 K/uL (0.7-4.9); Absolute Monocytes 0.4 K/uL (0.1-1.3); Absolute Neutrophil 2.9 K/uL (1.8-8.0); Basophils % 1.3 % (0-1.3); Lymphocytes % 12.2 % (15.3-44.8); Monocytes % 10.6 % (3.3-12.3); Neutrophils % 71.9 % (41.7-73.7); Nucleated Red Blood Cells % 0.6 % (0-0)
[2023-11-17 20:17] LABS: White Blood Cell Scan OK (OK)
[2023-11-17 20:23] LABS: Blood Morphology Comment NOTED (NOT SEEN); Platelet Estimate ADEQ
[2023-11-17 20:34] LABS: Anisocytosis 1+; Hypochromasia 1+; Ovalocytes SLIGHT; Poikilocytosis SLIGHT; Polychromasia SLIGHT
[2023-11-17] MEDS ORDERED: NA CHLORIDE 0.9% 250 ML ONE (21:57)
--- NOTE | 2023-11-18 00:54 | EDPHYS ---
Physician Documentation [facility] Name: Gonzalez Stein Jr Age: 78 yrs Sex: Male : 1945 Arrival Date: 11/17/2023 Time: 11:59 Bed 19 Private MD: ED Physician Agustín Carrion HPI: 11/16 13:28 This 78 yrs old Black Male presents to ER via Ambulatory with complaints of Abnormal sp3 Lab Results. 13:28 78-year-old male with a history of COPD, hypertension, hyperlipidemia, emphysema and sp3 now presents to the ED with generalized weakness and lightheadedness over the last several months. Outpatient hemoglobin by PCP demonstrates hemoglobin of 6.4 and he is sent here for transfusion. Patient reports no diarrhea, melena, bleeding, or any other signs or symptoms. He was told he had iron anemia. He denies chest pain, shortness of breath, fever, URI symptoms, back pain, abdominal pain, vomiting, diarrhea, rash, bleeding, or any other signs or symptoms on ROS at this time.. Historical: - Allergies: 12:15 No Known Allergies; mb9 - Home Meds: 12:15 lisinopril-hydrochlorothiazide 20-25 mg Oral tab 1 tab once daily [Active]; pravastatin mb9 20 mg Oral tab 1 tab once daily [Active]; tamsulosin 0.4 mg Oral cap 1 cap once daily [Active]; aspirin 81 mg Oral TbEC 1 tab once daily [Active]; albuterol sulfate 0.63 mg/3 mL Inhl nebu [Active]; - PMHx: 12:15 COPD; Hypertension; High Cholesterol; Emphysema; TIA; mb9 - PSHx: 12:15 hernia repair- 1965; mb9 - Immunization history:: Adult Immunizations up to date. - Infectious Disease History:: Denies. - Social history:: Smoking status: Patient denies any tobacco usage or history of. ROS: 13:28 Constitutional: Negative for fever, chills, and weight loss, Eyes: Negative for injury, sp3 pain, redness, and discharge, ENT: Negative for injury, pain, and discharge, Neck: Negative for injury, pain, and swelling, Cardiovascular: Negative for chest pain, palpitations, and edema, Respiratory: Negative for shortness of breath, cough, wheezing, and pleuritic chest pain, Abdomen/GI: Negative for abdominal pain, nausea, vomiting, diarrhea, and constipation, Back: Negative for injury and pain, : Negative for injury, bleeding, discharge, and swelling, Skin: Negative for injury, rash, and discoloration, Neuro: Negative for headache, weakness, numbness, tingling, and seizure, Psych: Negative for depression, anxiety, suicide ideation, homicidal ideation, and hallucinations, Allergy/Immunology: Negative for hives, rash, and allergies, Endocrine: Negative for neck swelling, polydipsia, polyuria, polyphagia, and marked weight changes, 13:28 All other systems are negative, Exam: 13:29 Constitutional: This is a well developed, well nourished patient who is awake, alert, sp3 and in no acute distress. Head/Face: Normocephalic, atraumatic. Eyes: Pupils equal round and reactive to light, extra-ocular motions intact. Lids and lashes normal. Conjunctiva and sclera are non-icteric and not injected. Cornea within normal limits. Periorbital areas with no swelling, redness, or edema. ENT: Nares patent. No nasal discharge, no septal abnormalities noted. External auditory canals are clear. Oropharynx with no redness, swelling, or masses, exudates, or evidence of obstruction, uvula midline. Mucous membranes moist. Neck: Trachea midline, no thyromegaly or masses palpated, and no cervical lymphadenopathy. Supple, full range of motion without nuchal rigidity, or vertebral point tenderness. No Meningismus. Chest/axilla: Normal chest wall appearance and motion. Nontender with no deformity. No lesions are appreciated. Cardiovascular: Regular rate and rhythm with a normal S1 and S2. No gallops, murmurs, or rubs. Normal PMI, no JVD. No pulse deficits. Respiratory: Lungs have equal breath sounds bilaterally, clear to auscultation and percussion. No rales, rhonchi or wheezes noted. No increased work of breathing, no retractions or nasal flaring. Abdomen/GI: Soft, non-tender, with normal bowel sounds. No distension or tympany. No guarding or rebound. No evidence of tenderness throughout. Back: No spinal tenderness. No costovertebral tenderness. Full range of motion. Skin: Warm, dry with normal turgor. Normal color with no rashes, no lesions, and no evidence of cellulitis. MS/ Extremity: Pulses equal, no cyanosis. Neurovascular intact. Full, normal range of motion. Neuro: Awake and alert, GCS 15, oriented to person, place, time, and situation. Cranial nerves II-XII grossly intact. Motor strength 5/5 in all extremities. Sensory grossly intact. Cerebellar exam normal. Normal gait. Psych: Awake, alert, with orientation to person, place and time. Behavior, mood, and affect are within normal limits. Vital Signs: 12:13 BP 101 / 57; Pulse 73; Resp 16; Temp 97.8; Pulse Ox 100% on R/A; Weight 61.23 kg; mb9 Height 5 ft. 8 in. ; Pain 0/10; 15:29 BP 100 / 59; Pulse 50; Resp 16; Pulse Ox 100% ; bp 16:28 BP 114 / 61; Pulse 50; Resp 16; Temp 98; Pulse Ox 100% ; bp 17:30 BP 108 / 62; Pulse 51; Resp 16; Temp 97.9; Pulse Ox 100% ; bp 19:00 BP 132 / 58; Pulse 51; Resp 14; Temp 97.9; Pulse Ox 100% ; bp 19:30 BP 130 / 58; Pulse 50; Resp 15; Temp 97.7(TE); Pulse Ox 100% on R/A; Pain 0/10; tm6 20:11 BP 108 / 62; Pulse 51; Pulse Ox 100% on R/A; Pain 0/10; tm6 21:40 BP 129 / 63; Pulse 53; Pulse Ox 100% on R/A; Pain 0/10; tm6 23:30 BP 146 / 62; Pulse 51; Resp 16; Temp 97.7(TE); Pulse Ox 100% on R/A; Pain 0/10; tm6 11/17 00:44 BP 146 / 64; Pulse 50; Resp 17; Temp 97.7(TE); Pulse Ox 96% on R/A; Pain 0/10; tm6 11/16 12:13 Body Mass Index 20.53 (61.23 kg, 172.72 cm) [facility] 11/16 12:13 Pain Scale: Adult mb9 19:30 Pain Scale: Adult tm6 20:11 Pain Scale: Adult tm6 21:40 Pain Scale: Adult tm6 23:30 Pain Scale: Adult tm6 11/17 00:44 Pain Scale: Adult tm6 MDM: 11/16 12:17 Patient medically screened. sp3 13:29 Data reviewed: vital signs, nurses notes, lab test result(s), radiologic studies. ED sp3 course: 78-year-old male with probable iron deficiency anemia. We will transfuse 2 units PRBCs after verifying hemoglobin and subsequently discharged home. I am not suspicious of acute blood loss or GI bleed at this time.. 20:15 ED course: Patient signed out to me by previous physician, in brief patient arrives ec2 today for anemia, ordered for transfusion. Plan to follow-up transfusion and discharged home.. 22:48 ED course: The significant delay in blood administration is secondary to blood ec2 availability. Ultimately still feel it would be best to keep in the emergency department and discharged home from here.. 11/17 00:53 ED course: Patient received 2 units of blood transfusion without issue. Will discharge ec2 home. Return precautions given. Instructed to follow-up primary care doctor regarding his chronic anemia.. 11/16 12:33 Order name: Type And Screen sp3 11/16 12:33 Order name: Basic Metabolic Panel; Complete Time: 14:44 sp3 11/16 12:33 Order name: CBC with Diff; Complete Time: 00:54 sp3 11/16 12:33 Order name: LFT's; Complete Time: 14:44 sp3 11/16 12:33 Order name: PT-INR; Complete Time: 14:44 sp3 11/16 15:16 Order name: Bb Add On bd 11/16 16:03 Order name: Packed RBC Leukored EDMO 11/16 20:19 Order name: CBC Smear Scan; Complete Time: 00:54 EDMO 11/16 12:33 Order name: IV Saline Lock; Complete Time: 13:58 sp3 11/16 12:33 Order name: Labs collected and sent; Complete Time: 13:58 sp3 Administered Medications: No medications were administered Disposition Summary: 11/18/23 00:53 Discharge Ordered Notes: Location: Home ec2 Condition: Stable ec2 Diagnosis - Anemia, unspecified ec2 Followup: ec2 - With: Private Physician - When: - Reason: Re-evaluation by your physician Discharge Instructions: - Discharge Summary Sheet ec2 - Blood Transfusion, Adult ec2 Forms: - Medication Reconciliation Form ec2 - Thank You Letter ec2 - Antibiotic Education ec2 - Prescription Opioid Use ec2 - Patient Portal Instructions ec2 - Leadership Thank You Letter ec2 Critical care time excluding procedures: 11/16 20:15 Critical care time: Bedside Care: 30 minutes. Total time: 30 minutes ec2 Signatures: Dispatcher [employer] Brett Hansen MD MD sp3 Carole Mascorro RN RN mb9 Agustín Carrion MD MD ec2
--- NOTE | 2023-11-18 00:54 | ER ---
Nurse's Notes [facility] Name: Gonzalez Stein Jr Age: 78 yrs Sex: Male : 1945 Arrival Date: 11/17/2023 Time: 11:59 Bed 19 Private MD: Diagnosis: Anemia, unspecified Presentation: 11/16 12:13 Chief complaint: Patient states: "I was told to come to the ER because my Hemoglobin mb9 was 6.4. I've been weak for the past 6 months and have a history of blood transfusions.". Coronavirus screen: At this time, the client does not indicate any symptoms associated with coronavirus-19. Ebola Screen: No symptoms or risks identified at this time. Initial Sepsis Screen: Does the patient meet any 2 criteria? No. Patient's initial sepsis screen is negative. Does the patient have a suspected source of infection? No. Patient's initial sepsis screen is negative. Risk Assessment: Do you want to hurt yourself or someone else? Patient reports no desire to harm self or others. Onset of symptoms. 12:13 Acuity: SHASHANK 3 mb9 12:13 Method Of Arrival: Ambulatory mb9 Triage Assessment: 12:16 General: Appears in no apparent distress. Behavior is calm, cooperative. Pain: Denies mb9 pain. EENT: No signs and/or symptoms were reported regarding the EENT system. Neuro: Lane Agitation-Sedation Scale (RASS): 0 - Alert and Calm Level of Consciousness is awake, alert, obeys commands, Oriented to person, place, time, situation, Appropriate for age. Neuro: Reports weakness. Cardiovascular: Patient's skin is warm and dry. Respiratory: Airway is patent Respiratory effort is even, unlabored, Respiratory pattern is regular, symmetrical. GI: Patient currently denies bloody stool. : No signs and/or symptoms were reported regarding the genitourinary system. Derm: Skin is pink, warm \\T\\ dry. Musculoskeletal: Range of motion:. Historical: - Allergies: 12:15 No Known Allergies; mb9 - Home Meds: 12:15 lisinopril-hydrochlorothiazide 20-25 mg Oral tab 1 tab once daily [Active]; pravastatin mb9 20 mg Oral tab 1 tab once daily [Active]; tamsulosin 0.4 mg Oral cap 1 cap once daily [Active]; aspirin 81 mg Oral TbEC 1 tab once daily [Active]; albuterol sulfate 0.63 mg/3 mL Inhl nebu [Active]; - PMHx: 12:15 COPD; Hypertension; High Cholesterol; Emphysema; TIA; mb9 - PSHx: 12:15 hernia repair- 1965; mb9 - Immunization history:: Adult Immunizations up to date. - Infectious Disease History:: Denies. - Social history:: Smoking status: Patient denies any tobacco usage or history of. Screenin:[address] [facility] ED Fall Risk Assessment (Adult) History of falling in the last 3 months, bp including since admission No falls in past 3 months (0 pts). Abuse screen: Denies threats or abuse. Denies injuries from another. Nutritional screening: No deficits noted. Tuberculosis screening: No symptoms or risk factors identified. Assessment: 13:10 General: Appears in no apparent distress. comfortable, Behavior is calm, cooperative, bp appropriate for age. Neuro: Reports weakness GENERALIZED. 15:00 Reassessment: No changes from previously documented assessment. Patient is alert, bp oriented x 3, equal unlabored respirations, skin warm/dry/pink. 16:29 Reassessment: PRBC READY. bp 18:00 Reassessment: Patient appears in no apparent distress at this time. Patient is alert, bp oriented x 3, equal unlabored respirations, skin warm/dry/pink. 19:00 Reassessment: Patient appears in no apparent distress at this time. Patient is alert, bp oriented x 3, equal unlabored respirations, skin warm/dry/pink. 19:32 Reassessment: Patient and/or family updated on plan of care and expected duration. Pain tm6 level reassessed. Patient is alert, oriented x 3, equal unlabored respirations, skin warm/dry/pink. 20:07 Reassessment: blood bank does not have another unit of O neg for this patient. They tm6 have already requested more O neg from [facility] [place], but said it may be a couple of hours before the blood arrives. notified. 20:11 Reassessment: Patient appears in no apparent distress at this time. No changes from tm6 previously documented assessment. 21:40 Reassessment: Patient appears in no apparent distress at this time. No changes from tm6 previously documented assessment. Patient and/or family updated on plan of care and expected duration. Pain level reassessed. Patient is alert, oriented x 3, equal unlabored respirations, skin warm/dry/pink. 23:31 Reassessment: Patient appears in no apparent distress at this time. No changes from tm6 previously documented assessment. Patient and/or family updated on plan of care and expected duration. Pain level reassessed. Patient is alert, oriented x 3, equal unlabored respirations, skin warm/dry/pink. 11/17 00:44 Reassessment: Patient appears in no apparent distress at this time. No changes from tm6 previously documented assessment. Patient and/or family updated on plan of care and expected duration. Pain level reassessed. Patient is alert, oriented x 3, equal unlabored respirations, skin warm/dry/pink. Vital Signs: 11/16 12:13 BP 101 / 57; Pulse 73; Resp 16; Temp 97.8; Pulse Ox 100% on R/A; Weight 61.23 kg; mb9 Height 5 ft. 8 in. ; Pain 0/10; 15:29 BP 100 / 59; Pulse 50; Resp 16; Pulse Ox 100% ; bp 16:28 BP 114 / 61; Pulse 50; Resp 16; Temp 98; Pulse Ox 100% ; bp 17:30 BP 108 / 62; Pulse 51; Resp 16; Temp 97.9; Pulse Ox 100% ; bp 19:00 BP 132 / 58; Pulse 51; Resp 14; Temp 97.9; Pulse Ox 100% ; bp 19:30 BP 130 / 58; Pulse 50; Resp 15; Temp 97.7(TE); Pulse Ox 100% on R/A; Pain 0/10; tm6 20:11 BP 108 / 62; Pulse 51; Pulse Ox 100% on R/A; Pain 0/10; tm6 21:40 BP 129 / 63; Pulse 53; Pulse Ox 100% on R/A; Pain 0/10; tm6 23:30 BP 146 / 62; Pulse 51; Resp 16; Temp 97.7(TE); Pulse Ox 100% on R/A; Pain 0/10; tm6 11/17 00:44 BP 146 / 64; Pulse 50; Resp 17; Temp 97.7(TE); Pulse Ox 96% on R/A; Pain 0/10; tm6 11/16 12:13 Body Mass Index 20.53 (61.23 kg, 172.72 cm) mb9 11/16 12:13 Pain Scale: Adult mb9 19:30 Pain Scale: Adult tm6 20:11 Pain Scale: Adult tm6 21:40 Pain Scale: Adult tm6 23:30 Pain Scale: Adult tm6 11/17 00:44 Pain Scale: Adult tm6 ED Course: 11/16 12:02 Patient arrived in ED. im 12:13 Arm band placed on. mb9 12:15 Triage completed. mb9 12:16 Brett Castellanos MD is Attending Physician. sp3 13:12 Ras Crum, RN is Primary Nurse. bp 13:58 PT-INR Sent. bp 13:58 LFT's Sent. bp 13:58 CBC with Diff Sent. bp 13:58 Basic Metabolic Panel Sent. bp 13:58 Type And Screen Sent. bp 13:58 Inserted saline lock: 20 gauge in left forearm, using aseptic technique. Blood bp collected. 15:29 Patient has correct armband on for positive identification. Bed in low position. Call bp light in reach. Side rails up X2. 16:29 Client placed on continuous cardiac and pulse oximetry monitoring. NIBP monitoring bp applied. clinical research monitor on. Pulse ox on. Consent for blood and/or blood product transfusion explained by staff, explained by physician, signed by patient. 17:48 Bb Add On Sent. bp 17:48 Packed RBC Leukored Sent. bp 19:19 Door closed. Noise minimized. Lights dimmed. Warm blanket given. tm6 19:20 Provided Education on: Blood Transfusion. tm6 20:01 Attending Physician role handed off by Brett Castellanos MD ec2 20:01 Agustín Carrion MD is Attending Physician. ec2 11/17 01:13 No provider procedures requiring assistance completed. IV discontinued, intact, tm6 bleeding controlled, No redness/swelling at site. Pressure dressing applied. Administered Medications: No medications were administered Medication: 11/16 16:29 VIS not applicable for this client. bp 17:30 Blood products: PRBCs X 2 units given. bp Outcome: 11/17 00:53 Discharge ordered by . ec2 01:13 Discharged to home ambulatory, with family, tm6 01:13 Condition: stable 01:13 Discharge instructions given to patient, Instructed on discharge instructions, follow up and referral plans. Demonstrated understanding of instructions, follow-up care, 01:13 Patient left the ED. tm6 Signatures: Ras Crum, RN RN bp Brett Castellanos MD MD sp3 Carole Mascorro RN RN mb9 Carolina Thompson Edwin, MD MD ec2 Julio Cesar Hubbard RN RN tm6
[2023-11-18 09:59] VITALS: BP 146/64; TEMP 97.7; O2SAT 96
== END 2023-11-18 01:13 | disposition home or self-care (01) ==
LOC: ER 11:59
DX: D64.9 Anemia, unspecified (principal); I10 Essential (primary) hypertension; J44.9 Chronic obstructive pulmonary disease, unspecified; Z79.82 Long term (current) use of aspirin
CPT/HCPCS: 85025; 80048; 36415; 86900; 86850; 85610; 86901; 80076; 86920 ×2; 36430; 99285; P9016 ×2; J7050

== ENCOUNTER 2024-02-07 13:27 | Emergency (ER) | payer OTHER ==
--- OUTSIDE RECORDS SUMMARY | 2024-02-07 13:31 | XMS REPORT | Continuity of Care Document ---
Author Name Unknown Address 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 Ordering Clinician Indication Dosage Frequency Signature (SIG) Comments Components Source Albuterol Sulfate Albuterol Sulfate Yes Micheline Dk 3 ml as needed [facility] Pravastatin Sodium Pravastatin Sodium Yes Micheline [place] 1 tablet [facility] Lisinopril/ Hctz Lisinopril/ Hctz Yes Micheline [place] 1 tablet once daily [facility] Encounters Start Date/Time End Date/Time Encounter Type Admission Type Attending Clinicians Care Facility Care Department Encounter ID Source 2022-10-04 11:42:54 Outpatient [facility] [id number] [facility] 2022-09-25 13:57:13 Outpatient [facility] [id number] [facility] 2022-08-30 12:47:09 Outpatient [facility] [id number] [facility] 2021-08-26 11:14:54 [facility] [id number] [facility] 2019-12-25 14:58:00 2019-12-25 14:58:00 [facility] [id number] [facility] 2019-12-17 13:15:00 2019-12-17 13:15:00 [facility] [id number] [facility] 2019-12-10 12:14:00 2019-12-10 12:14:00 [facility] [id number] [facility] 2019-11-27 15:00:00 2019-11-27 15:00:00 [facility] [id number] [facility] 2019-11-21 11:32:00 2019-11-21 11:32:00 [facility] [id number] [facility] 2019-11-21 10:00:00 2019-11-21 10:00:00 [facility] [id number] [facility] 2019-10-19 10:00:00 2019-10-19 10:00:00 [facility] [id number] [facility]
--- NOTE | 2024-02-07 21:05 | ER ---
Nurse's Notes [facility] Name: Pa Stein Jr Age: 78 yrs Sex: Male : 1945 Arrival Date: 02/07/2024 Time: 13:27 Bed IW1 Private MD: Diagnosis: Heat exhaustion, unspecified Presentation: 02/06 13:37 Chief complaint: Patient states: "I was stilling at my house and was really hot and got as6 dizzy. My apartment complex doesn't have powder". Coronavirus screen: At this time, the client does not indicate any symptoms associated with coronavirus-19. Ebola Screen: No symptoms or risks identified at this time. Initial Sepsis Screen: Does the patient meet any 2 criteria? No. Patient's initial sepsis screen is negative. Does the patient have a suspected source of infection? No. Patient's initial sepsis screen is negative. Risk Assessment: Do you want to hurt yourself or someone else? Patient reports no desire to harm self or others. Onset of symptoms was February 07, 2024. 13:37 Method Of Arrival: EMS: [facility] as6 13:37 Acuity: SHASHAKN 3 as6 Historical: - Allergies: 13:39 No Known Allergies; as6 - PMHx: 13:39 COPD; Emphysema; High Cholesterol; Hypertension; TIA; as6 - PSHx: 13:39 hernia repair- 1964; as6 - Immunization history:: Adult Immunizations up to date. - Infectious Disease History:: Denies. - Social history:: Smoking status: Patient denies any tobacco usage or history of. Screenin:11 [facility] ED Fall Risk Assessment (Adult) History of falling in the last 3 months, cm10 including since admission No falls in past 3 months (0 pts) Confusion or Disorientation No (0 pts) Intoxicated or Sedated No (0 pts) Impaired Gait No (0 pts) Mobility Assist Device Used No (0 pt) Altered Elimination No (0 pt) Score/Fall Risk Level 0 - 2 = Low Risk Oriented to surroundings, Maintained a safe environment, Hourly rounding (assess needs \\T\\ fall precautionary measures) done. Abuse screen: Denies threats or abuse. Denies injuries from another. Nutritional screening: No deficits noted. Tuberculosis screening: No symptoms or risk factors identified. Assessment: 18:10 Reassessment: Pt has no complaints at this time and states that he just needed a cool cm10 place to go. General: Appears in no apparent distress. comfortable, Behavior is calm, cooperative. Pain: Denies pain. Neuro: No deficits noted. Level of Consciousness is awake, alert, obeys commands, Oriented to person, place, time, situation, Appropriate for age. Respiratory: No deficits noted. Airway is patent Respiratory effort is even, unlabored, Respiratory pattern is regular, symmetrical. Vital Signs: 13:37 BP 136 / 70; Pulse 60; Resp 16; Temp 97.2; Pulse Ox 100% ; Weight 58.97 kg; Height 5 as6 ft. 8 in. ; Pain 5/10; 18:11 BP 176 / 90; Pulse 62; Resp 16; Pulse Ox 100% on R/A; Pain 0/10; cm10 13:37 Body Mass Index 19.77 (58.97 kg, 172.72 cm) as6 13:37 Pain Scale: Adult as6 18:11 Pain Scale: Adult cm10 ED Course: 13:35 Patient arrived in ED. mg5 13:39 Triage completed. as6 13:39 Sada Saavedra PA-C is PHCP. sb4 13:39 Jaya Mejia DO is Attending Physician. sb4 13:39 Arm band placed on. as6 18:11 Patient has correct armband on for positive identification. Provided Education on: ER cm10 process and procedures.. 19:45 No provider procedures requiring assistance completed. Patient did not have IV access cm10 during this emergency room visit. Administered Medications: No medications were administered Medication: 18:10 VIS not applicable for this client. cm10 Outcome: 18:17 Discharge ordered by . sb4 19:45 Discharged to home ambulatory, cm10 19:45 Condition: good 19:45 Discharge instructions given to patient, Instructed on discharge instructions, follow up and referral plans. medication usage, Cooling centers Demonstrated understanding of instructions, follow-up care, 19:46 Patient left the ED. cm10 Signatures: Maximo Avalos, RN RN as6 Sada Saavedra PA-C PA-C sb4 Martinez, Clarissa RN RN [email or web address] Galilea Reyes 5
--- NOTE | 2024-02-07 21:05 | EDPHYS ---
Physician Documentation [facility] Name: Pa Stein Jr Age: 78 yrs Sex: Male : 1945 Arrival Date: 02/07/2024 Time: 13:27 Bed IW1 Private MD: ED Physician Jaya Mejia HPI: 02/06 18:49 This 78 yrs old Black Male presents to ER via EMS with complaints of overheated. sb4 18:49 patient states he doesn't have power at home and got overheated, came to the ED to cool sb4 off. has no other complaints at this time. Historical: - Allergies: 13:39 No Known Allergies; as6 - PMHx: 13:39 COPD; Emphysema; High Cholesterol; Hypertension; TIA; as6 - PSHx: 13:39 hernia repair- 1964; as - Immunization history:: Adult Immunizations up to date. - Infectious Disease History:: Denies. - Social history:: Smoking status: Patient denies any tobacco usage or history of. ROS: 18:49 Constitutional: Negative for fever, chills, and weight loss, sb4 18:49 All other systems are negative, Exam: 18:49 Constitutional: This is a well developed, well nourished patient who is awake, alert, sb4 and in no acute distress. Head/Face: Normocephalic, atraumatic. Eyes: Extra-ocular motions intact. Periorbital areas with no swelling, redness, or edema. ENT: Mucous membranes moist. Skin: Warm, dry with normal turgor. Normal color with no rashes, no lesions, and no evidence of cellulitis. MS/ Extremity: Pulses equal, no cyanosis. Neurovascular intact. Full, normal range of motion. Vital Signs: 13:37 BP 136 / 70; Pulse 60; Resp 16; Temp 97.2; Pulse Ox 100% ; Weight 58.97 kg; Height 5 as6 ft. 8 in. ; Pain 5/10; 18:11 BP 176 / 90; Pulse 62; Resp 16; Pulse Ox 100% on R/A; Pain 0/10; cm10 13:37 Body Mass Index 19.77 (58.97 kg, 172.72 cm) as6 13:37 Pain Scale: Adult as6 18:11 Pain Scale: Adult cm10 MDM: 13:39 Patient medically screened. sb4 18:49 Data reviewed: vital signs, nurses notes, and as a result, I will discharge patient. sb4 Counseling: I had a detailed discussion with the patient and/or guardian regarding the historical points, exam findings, and any diagnostic results supporting the discharge/admit diagnosis, to return to the emergency department if symptoms worsen or persist or if there are any questions or concerns that arise at home. Administered Medications: No medications were administered Disposition: 21:14 I was immediately available on-site in the Emergency Department for consultation in the ms3 care of the patient. Disposition Summary: 02/07/24 18:17 Discharge Ordered Notes: Location: Home sb4 Problem: new sb4 Symptoms: have improved sb4 Condition: Stable sb4 Diagnosis - Heat exhaustion, unspecified sb4 Followup: sb4 - With: Emergency Department - When: As needed - Reason: Trouble breathing, Worsening of condition Forms: - Medication Reconciliation Form sb4 - Antibiotic Education sb4 - Prescription Opioid Use sb4 - Patient Portal Instructions sb4 - Leadership Thank You Letter sb4 Signatures: Jaya Mejia DO DO ms3 Maximo Avalos, RN RN as6 Sada Saavedra, PA-C PAVasylC sb4
[2024-02-07 23:29] VITALS: BP 176/90; TEMP 97.2; O2SAT 100
== END 2024-02-07 19:46 | disposition home or self-care (01) ==
LOC: ER 13:27
DX: T67.5XXA Heat exhaustion, unspecified, initial encounter (principal); J44.9 Chronic obstructive pulmonary disease, unspecified; J43.9 Emphysema, unspecified; I10 Essential (primary) hypertension; E78.00 Pure hypercholesterolemia, unspecified; X58.XXXA Exposure to other specified factors, initial encounter; Y93.9 Activity, unspecified; Y92.019 Unspecified place in single-family (private) house as the place of occurrence of the external cause; Z86.73 Personal history of transient ischemic attack (TIA), and cerebral infarction without residual deficits
CPT/HCPCS: 99283